=== PATIENT | male | born 1970 | race Caucasian/White ===

== ENCOUNTER 2016-07-21 17:27 | Emergency (ER) | payer MEDICAID ==
[2016-07-21 17:53] VITALS: BP 115/72
--- NOTE | 2016-07-21 18:48 | ED Physician Documentation ---
PD HPI DYSPNEA - Stated complaint Stated Complaint: ASHTMA RX - Chief complaint Chief Complaint: Resp - History obtained from History obtained from: Patient - History of Present Illness Timing - onset: How many days ago (has had increased wheezing and some nasal congestion the past few days. Out of his Albuterol inhaler. Clinic appt not until next week.) Timing - onset during: Light activity Timing - details: Gradual onset, Waxing and waning Inciting event(s): Out of meds Associated symptoms: Cough, Wheezing. No: Fever, Hemoptysis Similar symptoms before: Diagnosis (asthma) Review of Systems Constitutional: denies: Fever, Chills Nose: reports: Rhinorrhea / runny nose, Sinus pressure / pain Throat: denies: Sore throat Cardiac: denies: Chest pain / pressure Respiratory: reports: Cough, Wheezing. denies: Dyspnea PD PAST MEDICAL HISTORY - Past Medical History Cardiovascular: None Respiratory: Asthma Neuro: None Endocrine/Autoimmune: None GI: None : None HEENT: None Psych: None Musculoskeletal: None Derm: None - Past Surgical History Past Surgical History: Yes General: Splenectomy - Present Medications Home Medications: Ambulatory Orders Medication Instructions Recorded Confirmed Albuterol [Ventolin Hfa] 2 puffs INH Q4H PRN #1 inhaler 01/31/15 07/21/16 Methadone 135 mg PO DAILY 11/20/15 Albuterol Sulfate [Proair Hfa 2 puffs IH QID #1 hfa.aer.ad 07/21/16 Inhaler] predniSONE [Deltasone] 40 mg PO DAILY #10 tablet 07/21/16 - Allergies Allergies/Adverse Reactions: Allergies Allergy/AdvReac Type Severity Reaction Status Date / Time No Known Drug Allergies Allergy Verified 07/21/16 17:53 - Social History Does the pt smoke?: No Smoking Status: Former smoker Does the pt drink ETOH?: No Does the pt have substance abuse?: Yes - Immunizations Immunizations are current?: Yes - POLST Patient has POLST: No PD ED PE NORMAL - Vitals Vital signs reviewed: Yes - General General: Alert and oriented X 3, Well developed/nourished - HEENT HEENT: Ears normal, Pharynx benign - Neck Neck: Supple, no meningeal sign, No adenopathy - Cardiac Cardiac: RRR, No murmur - Respiratory Respiratory: No: Clear bilaterally (mild scattered wheezes, no coarse sounds. ) Results - Vitals Vitals: Vital Signs - 24 hr 07/21/16 17:52 Temperature 36.3 C L Heart Rate 83 Respiratory 20 Rate Blood Pressure 115/72 O2 Saturation 98 Oxygen O2 Source Room air PD MEDICAL DECISION MAKING - ED course Complexity details: considered differential (not too bad here and he mainly wants refill Rx. will do short steroid course for allergies flare up. ), d/w patient Departure - Departure Disposition: 01 Home, Self Care Clinical Impression: Dyspnea Acute asthma exacerbation Qualifiers: Asthma severity: mild intermittent Qualified Code(s): J45.21 - Mild intermittent asthma with (acute) exacerbation Condition: Stable Record reviewed to determine appropriate education?: Yes Instructions: ED Reactive Airway Disease Follow-Up: Nancy Gutierrez ARNP [Primary Care Provider] - Prescriptions: predniSONE [Deltasone] 40 mg PO DAILY #10 tablet Albuterol Sulfate [Proair Hfa Inhaler] 2 puffs IH QID #1 hfa.aer.ad Comments: Usual inhaler - Albuterol 2 puffs 4 times daily for a week then as needed. Prednisone as directed for 5 days. Recheck with PMD as planned. Discharge Date/Time: 07/21/16 18:59
[2016-07-21] MEDS ORDERED: DEXAMETHASONE 10 MG/ML VIAL PO STA (18:50)
[2016-07-21] MEDS ORDERED: DEXAMETHASONE 10 MG/ML VIAL ONE (18:56)
== END 2016-07-21 18:59 | disposition home or self-care (01) ==
LOC: ED 17:27
DX: J45.21 Mild intermittent asthma with (acute) exacerbation (principal); Z87.891 Personal history of nicotine dependence
CPT/HCPCS: 99283

== ENCOUNTER 2016-08-14 12:47 | Emergency (ER) | payer MEDICAID ==
[2016-08-14 12:51] VITALS: BP 157/69
[2016-08-14] MEDS ORDERED: DEXAMETHASONE 10 MG/ML VIAL PO STA (13:34)
[2016-08-14] MEDS ORDERED: CHERRY SYRUP 10 ML UDC PO ONE (13:35)
[2016-08-14] MEDS ORDERED: DEXAMETHASONE 10 MG/ML VIAL ONE (13:35)
--- NOTE | 2016-08-14 13:39 | ED Physician Documentation ---
PD HPI DYSPNEA - Stated complaint Stated Complaint: TROUBLE BREATHING - Chief complaint Chief Complaint: Resp - History obtained from History obtained from: Patient - History of Present Illness Timing - onset: How many days ago (2) Timing - onset during: Light activity Timing - duration: Days (2) Timing - details: Gradual onset, Still present Inciting event(s): Out of meds Improved by: Inhaler/neb Worsened by: Coughing, Allergens Associated symptoms: Cough (is improved), Wheezing. No: Fever Similar symptoms before: Diagnosis (asthma) Recently seen: Emergency Dept (Seen in the ED last month) - Additional information Additional information: 45 y/o male with a history of asthma had a recent exacerbation and he feels he improved dramatically from that. He quit smoking a month ago as well and he took the prednisone and this seemed to help. He is no longer coughing up yellow phlem and [place] and still [place] it. He usually has an exacerbation at the beginning of summer and in the fall and he has to use his inhaler as often as 3-4 times per day. On his best days he may only need this once and sometimes not for a week. Review of Systems Constitutional: reports: Fatigue. denies: Fever, Chills, Myalgias Eyes: denies: Decreased vision Ears: denies: Ear pain Nose: denies: Rhinorrhea / runny nose, Congestion Throat: denies: Sore throat Cardiac: denies: Chest pain / pressure, Palpitations Respiratory: reports: Dyspnea, Cough, Wheezing GI: denies: Abdominal Pain, Nausea, Vomiting : denies: Dysuria, Frequency PD PAST MEDICAL HISTORY - Past Medical History Past Medical History: Yes Cardiovascular: None Respiratory: Asthma, Pneumonia Neuro: None Endocrine/Autoimmune: None GI: None : None HEENT: None Psych: None Musculoskeletal: None Derm: None Other Past Medical History: staph unknown if mrsa - Past Surgical History Past Surgical History: Yes General: Splenectomy - Present Medications Home Medications: Ambulatory Orders Medication Instructions Recorded Confirmed Albuterol [Ventolin Hfa] 2 puffs INH Q4H PRN #1 inhaler 01/31/15 08/14/16 Methadone 135 mg PO DAILY 11/20/15 08/14/16 Albuterol Sulf [Ventolin Hfa 1 - 2 puffs INH Q4HR PRN #1 inhaler 08/14/16 Inhaler] - Allergies Allergies/Adverse Reactions: Allergies Allergy/AdvReac Type Severity Reaction Status Date / Time No Known Drug Allergies Allergy Verified 07/21/16 17:53 - Social History Does the pt smoke?: No Smoking Status: Former smoker Does the pt drink ETOH?: No Does the pt have substance abuse?: Yes Substance Use and Type: Marijuana - Immunizations Immunizations are current?: Yes - POLST Patient has POLST: No PD ED PE NORMAL - Vitals Vital signs reviewed: Yes (tachy and hypertensive ) - General General: Alert and oriented X 3, No acute distress, Well developed/nourished - HEENT HEENT: Atraumatic, PERRL, EOMI, Ears normal, Moist mucous membranes, Pharynx benign - Neck Neck: Supple, no meningeal sign, No bony TTP - Cardiac Cardiac: RRR, No murmur - Respiratory Respiratory: No respiratory distress, Other (scattered wheezes and rhonchi ) - Abdomen Abdomen: Soft, Non tender - Back Back: No CVA TTP, No spinal TTP - Derm Derm: Normal color, Warm and dry, No rash - Extremities Extremities: No deformity, No calf tenderness / cord - Neuro Neuro: No motor deficit, No sensory deficit - Psych Psych: Normal mood, Normal affect Results - Vitals Vitals: Vital Signs - 24 hr 08/14/16 12:50 Temperature 36.6 C Heart Rate 105 H Respiratory 20 Rate Blood Pressure 157/69 H O2 Saturation 96 Oxygen O2 Source Room air PD MEDICAL DECISION MAKING - ED course Complexity details: reviewed old records, considered differential, d/w patient ED course: 45 y/o male with asthma appears to be improved from recent exacerbation and he does not have fever or other signs of infection. He is given a script for an albuterol inhaler and he is given a single dose of decadron here in the ED. Departure - Departure Disposition: 01 Home, Self Care Clinical Impression: Asthma Instructions: ED Reactive Airway Disease Follow-Up: Nancy Gutierrez ARNP [Primary Care Provider] - Prescriptions: Albuterol Sulf [Ventolin Hfa Inhaler] 1 - 2 puffs INH Q4HR PRN #1 inhaler PRN Reason: Shortness Of Air/Wheezing
== END 2016-08-14 13:46 | disposition home or self-care (01) ==
LOC: ED 12:47
DX: J45.909 Unspecified asthma, uncomplicated (principal); Z87.891 Personal history of nicotine dependence
CPT/HCPCS: 99283; A9270

== ENCOUNTER 2016-08-30 21:47 | Emergency (ER) | payer MEDICAID ==
[2016-08-30 21:53] VITALS: BP 123/78
--- NOTE | 2016-08-30 22:07 | ED Physician Documentation ---
PD HPI DYSPNEA - Stated complaint Stated Complaint: SOA - Chief complaint Chief Complaint: Allergic Rx - History obtained from History obtained from: Patient - History of Present Illness Timing - onset: Today Timing - onset during: Light activity (ran out of his Albuterol inhaler and is having wheezing today. Does not use inhaler steroids. Has not established local PMD (has upcoming appt next month).) Timing - details: Gradual onset, Still present, Waxing and waning Inciting event(s): Out of meds. No: URI, Exposure (ie smoke) Improved by: Inhaler/neb (but has run out) Associated symptoms: Wheezing. No: Fever, Cough, Hemoptysis, Chest pain / discomfort Similar symptoms before: Diagnosis (asthma) Recently seen: No: Clinic Review of Systems Constitutional: denies: Fever, Chills Nose: denies: Rhinorrhea / runny nose, Congestion Throat: denies: Sore throat Cardiac: denies: Chest pain / pressure Respiratory: reports: Dyspnea, Wheezing. denies: Cough GI: denies: Vomiting, Diarrhea PD PAST MEDICAL HISTORY - Past Medical History Cardiovascular: None Respiratory: Asthma, Pneumonia Neuro: None Endocrine/Autoimmune: None GI: None : None HEENT: None Psych: None Musculoskeletal: None Derm: None - Past Surgical History Past Surgical History: Yes General: Splenectomy - Present Medications Home Medications: Ambulatory Orders Medication Instructions Recorded Confirmed Albuterol [Ventolin Hfa] 2 puffs INH Q4H PRN #1 inhaler 01/31/15 08/30/16 Methadone 135 mg PO DAILY 11/20/15 08/30/16 Albuterol Sulf [Ventolin Hfa 1 - 2 puffs INH Q4HR PRN #1 inhaler 08/14/16 Inhaler] Albuterol Sulfate [Proair Hfa 2 puffs IH QID #1 hfa.aer.ad 08/30/16 Inhaler] Beclomethasone 80 Mcg [Qvar 80] 1 puffs INH BID #1 inhaler 08/30/16 Dexamethasone [Decadron] 4 mg PO DAILY #5 tablet 08/30/16 - Allergies Allergies/Adverse Reactions: Allergies Allergy/AdvReac Type Severity Reaction Status Date / Time No Known Drug Allergies Allergy Verified 08/30/16 22:02 - Social History Does the pt smoke?: No Smoking Status: Former smoker Does the pt drink ETOH?: No Does the pt have substance abuse?: Yes - Immunizations Immunizations are current?: Yes - POLST Patient has POLST: No PD ED PE NORMAL - Vitals Vital signs reviewed: Yes - General General: Alert and oriented X 3, Well developed/nourished, Other (some conversational dyspnea and moderate wheezing. ) - HEENT HEENT: Pharynx benign - Neck Neck: Supple, no meningeal sign, No adenopathy - Cardiac Cardiac: RRR, No murmur - Respiratory Respiratory: No: Clear bilaterally (wheezing diffusely. ) - Derm Derm: Normal color, Warm and dry, No rash Results - Vitals Vitals: Oxygen O2 Source Room air Departure - Departure Disposition: 01 Home, Self Care Clinical Impression: Acute asthma exacerbation Qualifiers: Asthma severity: moderate persistent Qualified Code(s): J45.41 - Moderate persistent asthma with (acute) exacerbation Condition: Stable Record reviewed to determine appropriate education?: Yes Instructions: Asthma Dc Follow-Up: Nancy Gutierrez ARNP [Primary Care Provider] - Prescriptions: Dexamethasone [Decadron] 4 mg PO DAILY #5 tablet Albuterol Sulfate [Proair Hfa Inhaler] 2 puffs IH QID #1 hfa.aer.ad Beclomethasone 80 Mcg [Qvar 80] 1 puffs INH BID #1 inhaler Comments: Albuterol inhaler 2 puffs 4 times daily for a week then as needed. Decadron steroid daily for 5 more days. QVar inhaled steroid twice daily. Follow up with new PCP as planned. Discharge Date/Time: 08/30/16 22:40
[2016-08-30] MEDS ORDERED: ALBUTEROL NEB 2.5 MG/3 ML INH STA (22:11)
[2016-08-30] MEDS ORDERED: DEXAMETHASONE 10 MG/ML VIAL PO STA (22:12)
[2016-08-30] MEDS ORDERED: DEXAMETHASONE 10 MG/ML VIAL ONE (22:16)
[2016-08-30] MEDS ORDERED: ALBUTEROL NEB 2.5 MG/3 ML INH ONE (22:17)
[2016-08-30] MEDS ORDERED: ALBUTEROL 8 GM INHALER INH STA (22:31)
== END 2016-08-30 22:40 | disposition home or self-care (01) ==
LOC: ED 21:47
DX: J45.901 Unspecified asthma with (acute) exacerbation (principal); Z87.891 Personal history of nicotine dependence
CPT/HCPCS: 94640; 99283; A9270; J7613

== ENCOUNTER 2016-10-18 17:14 | Emergency (ER) | payer MEDICAID ==
[2016-10-18] MEDS ORDERED: DEXAMETHASONE 10 MG/ML VIAL PO STA (17:34)
--- NOTE | 2016-10-18 17:37 | ED Physician Documentation ---
PD HPI DYSPNEA - Stated complaint Stated Complaint: DIFF BREATHING - Chief complaint Chief Complaint: Resp - History obtained from History obtained from: Patient - History of Present Illness Timing - onset: How many days ago (2) Timing - onset during: Rest Timing - duration: Days (2) Timing - details: Gradual onset, Still present Inciting event(s): Out of meds, Exposure (ie smoke) Improved by: Inhaler/neb Worsened by: Exertion, Coughing Associated symptoms: Wheezing Similar symptoms before: Diagnosis (asthma) Recently seen: Not recently seen - Additional information Additional information: 45-year-old male with history of asthma chronic intermittent has run out of his inhaler and he continues to be dyspneic. He does not feel that he is sick now with any infection but does feel that he needs his inhaler. Review of Systems Constitutional: denies: Fever Eyes: denies: Decreased vision Ears: denies: Ear pain Nose: denies: Rhinorrhea / runny nose, Congestion Throat: denies: Sore throat Cardiac: denies: Chest pain / pressure, Palpitations Respiratory: reports: Dyspnea, Cough, Wheezing GI: denies: Abdominal Pain, Nausea, Vomiting : denies: Dysuria, Frequency Musculoskeletal: reports: Back pain PD PAST MEDICAL HISTORY - Past Medical History Cardiovascular: None Respiratory: Asthma, Pneumonia Neuro: None Endocrine/Autoimmune: None GI: None : None HEENT: None Psych: None Musculoskeletal: None Derm: None - Past Surgical History Past Surgical History: Yes General: Splenectomy - Present Medications Home Medications: Ambulatory Orders Medication Instructions Recorded Confirmed Albuterol [Ventolin Hfa] 2 puffs INH Q4H PRN #1 inhaler 01/31/15 08/30/16 Methadone 135 mg PO DAILY 11/20/15 08/30/16 Albuterol Sulf [Ventolin Hfa 1 - 2 puffs INH Q4HR PRN #1 inhaler 08/14/16 Inhaler] Albuterol Sulfate [Proair Hfa 2 puffs IH QID #1 hfa.aer.ad 08/30/16 Inhaler] Beclomethasone 80 Mcg [Qvar 80] 1 puffs INH BID #1 inhaler 08/30/16 Dexamethasone [Decadron] 4 mg PO DAILY #5 tablet 08/30/16 Albuterol Sulf [Ventolin Hfa 1 - 2 puffs INH Q4HR PRN #1 inhaler 10/18/16 Inhaler] - Allergies Allergies/Adverse Reactions: Allergies Allergy/AdvReac Type Severity Reaction Status Date / Time No Known Drug Allergies Allergy Verified 10/18/16 17:19 - Social History Does the pt smoke?: No Smoking Status: Former smoker Does the pt drink ETOH?: No Does the pt have substance abuse?: Yes - Immunizations Immunizations are current?: Yes - POLST Patient has POLST: No PD ED PE NORMAL - Vitals Vital signs reviewed: Yes (Hypertensive) - General General: No acute distress, Well developed/nourished - HEENT HEENT: Atraumatic, PERRL, EOMI, Ears normal, Other - Neck Neck: Supple, no meningeal sign (Dry mucous membranes poor dentition.), No bony TTP - Cardiac Cardiac: RRR, No murmur - Respiratory Respiratory: No respiratory distress, Other (Scattered rhonchi and wheezes bilaterally) - Abdomen Abdomen: Soft, Non tender - Back Back: No CVA TTP, No spinal TTP - Derm Derm: Normal color, Warm and dry, No rash - Extremities Extremities: No deformity, No edema - Neuro Neuro: No motor deficit, No sensory deficit - Psych Psych: Normal mood, Normal affect Results - Vitals Vitals: Vital Signs - 24 hr 10/18/16 17:16 Temperature 36.7 C Heart Rate 93 Respiratory 20 Rate Blood Pressure 138/80 H O2 Saturation 95 Oxygen O2 Source Room air PD MEDICAL DECISION MAKING - ED course Complexity details: reviewed old records, reviewed results, re-evaluated patient , considered differential, d/w patient ED course: 45-year-old male with history of asthma has run out of his inhaler and does not have current evidence of infection. He does have some chronic back pain that he believes may be related to sleeping more than usual after starting a methadone program. Here in the emergency department he is administered dexamethasone 10 mg orally. He has had prior prescriptions for prednisone and he does not fill these. We will provide him with a prescription for an inhaler. Departure - Departure Disposition: 01 Home, Self Care Clinical Impression: Asthma Condition: Stable Instructions: ED Reactive Airway Disease Follow-Up: Nancy Gutierrez ARNP [Primary Care Provider] - Prescriptions: Albuterol Sulf [Ventolin Hfa Inhaler] 1 - 2 puffs INH Q4HR PRN #1 inhaler PRN Reason: Shortness Of Air/Wheezing
[2016-10-18] MEDS ORDERED: DEXAMETHASONE 10 MG/ML VIAL ONE (17:41)
[2016-10-18 17:47] VITALS: BP 132/78
== END 2016-10-18 17:46 | disposition home or self-care (01) ==
LOC: ED 17:14
DX: J45.909 Unspecified asthma, uncomplicated (principal); Z87.891 Personal history of nicotine dependence
CPT/HCPCS: 99283

== ENCOUNTER 2016-11-02 04:35 | Emergency (ER) | payer MEDICAID ==
[2016-11-02] MEDS ORDERED: IPRATROPIUM/ALBUTEROL 3 ML NEB INH STA (04:36)
--- NOTE | 2016-11-02 04:36 | ED Physician Documentation ---
PD HPI DYSPNEA - Stated complaint Stated Complaint: SHORTNESS OF BREATH - History obtained from History obtained from: Patient - History of Present Illness Timing - onset: How many hours ago (1-2 hours [employer]), Today Timing - onset during: Rest Timing - duration: Hours Timing - details: Gradual onset, Constant Pain level max: 0 Pain level now: 0 Inciting event(s): Out of meds (out of albuterol inhaler) Improved by: Rest Worsened by: Exertion Associated symptoms: Wheezing. No: Fever, Cough Similar symptoms before: Diagnosis (asthma) Review of Systems Constitutional: denies: Fever Cardiac: denies: Chest pain / pressure Respiratory: reports: Dyspnea, Wheezing. denies: Cough GI: reports: Reviewed and negative PD PAST MEDICAL HISTORY - Past Medical History Cardiovascular: None Respiratory: Asthma, Pneumonia Neuro: None Endocrine/Autoimmune: None GI: None : None HEENT: None Psych: None Musculoskeletal: None Derm: None - Past Surgical History Past Surgical History: Yes General: Splenectomy - Present Medications Home Medications: Ambulatory Orders Medication Instructions Recorded Confirmed Albuterol [Ventolin Hfa] 2 puffs INH Q4H PRN #1 inhaler 01/31/15 08/30/16 Methadone 135 mg PO DAILY 11/20/15 08/30/16 Albuterol Sulf [Ventolin Hfa 1 - 2 puffs INH Q4HR PRN #1 inhaler 08/14/16 Inhaler] Albuterol Sulfate [Proair Hfa 2 puffs IH QID #1 hfa.aer.ad 08/30/16 Inhaler] Beclomethasone 80 Mcg [Qvar 80] 1 puffs INH BID #1 inhaler 08/30/16 Dexamethasone [Decadron] 4 mg PO DAILY #5 tablet 08/30/16 Albuterol Sulf [Ventolin Hfa 1 - 2 puffs INH Q4HR PRN #1 inhaler 10/18/16 Inhaler] Albuterol Sulf [Ventolin Hfa 1 - 2 puffs INH Q4HR PRN #1 inhaler 11/02/16 Inhaler] predniSONE [Deltasone] 40 mg PO DAILY 4 Days 11/02/16 - Allergies Allergies/Adverse Reactions: Allergies Allergy/AdvReac Type Severity Reaction Status Date / Time No Known Drug Allergies Allergy Verified 10/18/16 17:19 - Social History Does the pt smoke?: No Smoking Status: Former smoker Does the pt drink ETOH?: No Does the pt have substance abuse?: Yes - Immunizations Immunizations are current?: Yes - POLST Patient has POLST: No PD ED PE NORMAL - Vitals Vital signs reviewed: Yes - General General: Alert and oriented X 3, Well developed/nourished, Other (moderate- severe respiratory distress) - Neck Neck: Supple, no meningeal sign PD ED PE EXPANDED - Cardiac Cardiac: Tachy, Regular Rhythm - Respiratory Respiratory: Distress, Labored, Wheezing, Decreased breath sounds Results - Vitals Vitals: Vital Signs - 24 hr 11/02/16 11/02/16 11/02/16 04:37 04:40 06:12 Temperature 36.4 C L Heart Rate 109 H 86 93 Respiratory 16 14 16 Rate Blood Pressure 152/51 H 102/51 L O2 Saturation 96 94 11/02/16 06:50 Temperature Heart Rate 87 Respiratory 16 Rate Blood Pressure O2 Saturation Oxygen O2 Source Room air Oxygen Flow Rate 6 PD MEDICAL DECISION MAKING - ED course Complexity details: reviewed old records, re-evaluated patient, considered differential, d/w patient ED course: Duoneb followed by 3 albuterol nebs with resolution of signs and symptoms: on reevaluation after these treatments, his respirations are CTA bilaterally, regular and easy, speaking in full sentences and reporting resolution of his symptoms. Departure - Departure Disposition: 01 Home, Self Care Clinical Impression: Asthma Condition: Good Instructions: ED Reactive Airway Disease Follow-Up: Nancy Gutierrez ARNP [Primary Care Provider] - Prescriptions: Albuterol Sulf [Ventolin Hfa Inhaler] 1 - 2 puffs INH Q4HR PRN #1 inhaler PRN Reason: Shortness Of Air/Wheezing predniSONE [Deltasone] 40 mg PO DAILY 4 Days Discharge Date/Time: 11/02/16 07:09
[2016-11-02] MEDS ORDERED: ALBUTEROL NEB 2.5 MG/3 ML INH STA ×3 (04:40→06:14)
[2016-11-02] MEDS ORDERED: ALBUTEROL NEB 2.5 MG/3 ML INH ONE ×2 (04:45→06:56)
[2016-11-02] MEDS ORDERED: predniSONE 20 MG TABLET PO STA (04:54)
[2016-11-02] MEDS ORDERED: predniSONE 20 MG TABLET ONE (05:46)
[2016-11-02 06:13] VITALS: BP 102/51
== END 2016-11-02 07:09 | disposition home or self-care (01) ==
LOC: ED 04:35
DX: J45.909 Unspecified asthma, uncomplicated (principal); Z87.891 Personal history of nicotine dependence
CPT/HCPCS: 94640; 99283; 99284; J7512; J7613

== ENCOUNTER 2016-11-18 06:31 | Emergency (ER) | payer MEDICAID ==
[2016-11-18 06:37] VITALS: BP 133/100
[2016-11-18] MEDS ORDERED: IPRATROPIUM/ALBUTEROL 3 ML NEB INH STA (06:40)
[2016-11-18] MEDS ORDERED: IPRATROPIUM/ALBUTEROL 3 ML NEB INH ONE ×3 (06:46→06:56)
--- NOTE | 2016-11-18 07:29 | ED Physician Documentation ---
PD HPI DYSPNEA - Stated complaint Stated Complaint: SOA - Chief complaint Chief Complaint: Resp - History obtained from History obtained from: Patient - History of Present Illness Timing - onset: Yesterday Timing - onset during: Rest Timing - duration: Days (1) Timing - details: Gradual onset, Still present Inciting event(s): Out of meds Improved by: Inhaler/neb Worsened by: Exertion, Laying flat, Coughing, Allergens Associated symptoms: Cough, Wheezing. No: Fever, Hemoptysis Similar symptoms before: Diagnosis (asthma) Recently seen: Emergency Dept (3rd visit in 30 days) - Additional information Additional information: 45-year-old male with chronic persistent asthma has run out of his inhaler last night and is having respiratory distress this morning. He states that he has previously had control of his asthma with use of Advair and he has not been able to get in to see his regular doctor for the past 2 months. He does have an appointment to see a new doctor at the [facility] clinic next week.He does not feel that he is sick in any way but needs his inhaler. Review of Systems Constitutional: denies: Fever Eyes: denies: Decreased vision Ears: denies: Ear pain Nose: denies: Congestion Throat: denies: Sore throat Cardiac: denies: Chest pain / pressure, Palpitations Respiratory: reports: Dyspnea, Cough, Wheezing GI: denies: Abdominal Pain, Nausea, Vomiting : denies: Dysuria, Frequency PD PAST MEDICAL HISTORY - Past Medical History Cardiovascular: None Respiratory: Asthma, Pneumonia Neuro: None Endocrine/Autoimmune: None GI: None : None HEENT: None Psych: None Musculoskeletal: None Derm: None - Past Surgical History Past Surgical History: Yes General: Splenectomy - Present Medications Home Medications: Ambulatory Orders Medication Instructions Recorded Confirmed Albuterol [Ventolin Hfa] 2 puffs INH Q4H PRN #1 inhaler 01/31/15 11/18/16 Albuterol Sulf [Ventolin Hfa 1 - 2 puffs INH Q4HR PRN #1 inhaler 11/18/16 Inhaler] Fluticasone/Salmeterol [Advair 1 each IH 1-2XD #30 blst.w.dev 11/18/16 250-50 Diskus] - Allergies Allergies/Adverse Reactions: Allergies Allergy/AdvReac Type Severity Reaction Status Date / Time No Known Drug Allergies Allergy Verified 11/18/16 06:37 - Social History Does the pt smoke?: No Smoking Status: Never smoker Does the pt drink ETOH?: No Does the pt have substance abuse?: Yes - Immunizations Immunizations are current?: Yes - POLST Patient has POLST: No PD ED PE NORMAL - Vitals Vital signs reviewed: Yes (Hypertensive) - General General: No acute distress, Well developed/nourished - HEENT HEENT: Atraumatic, PERRL, EOMI, Ears normal, Moist mucous membranes, Pharynx benign - Neck Neck: Supple, no meningeal sign - Cardiac Cardiac: RRR, No murmur - Respiratory Respiratory: No respiratory distress, Other (Light wheezes bilaterally after treatment.) - Abdomen Abdomen: Soft, Non tender - Back Back: No CVA TTP, No spinal TTP - Derm Derm: Normal color, Warm and dry, No rash - Extremities Extremities: No deformity, No edema - Neuro Neuro: No motor deficit, No sensory deficit - Psych Psych: Normal mood, Normal affect Results - Vitals Vitals: Vital Signs - 24 hr 11/18/16 11/18/16 11/18/16 06:34 06:49 07:00 Temperature 36.8 C Heart Rate 71 63 78 Respiratory 20 20 18 Rate Blood Pressure 133/100 H O2 Saturation 97 Oxygen O2 Source T-piece PD MEDICAL DECISION MAKING - ED course Complexity details: reviewed old records, re-evaluated patient, considered differential, d/w patient ED course: 45-year-old male with chronic persistent asthma has run out of his inhaler and he needs this. He has not been able to get into his primary care doctor And has not had adequate management of his asthma. He has had prior management of his asthma with Advair and we will prescribe this today as well as an albuterol inhaler. Departure - Departure Disposition: 01 Home, Self Care Clinical Impression: Asthma Condition: Stable Instructions: ED Reactive Airway Disease Follow-Up: Nancy Gutierrez ARNP [Primary Care Provider] - Prescriptions: Albuterol Sulf [Ventolin Hfa Inhaler] 1 - 2 puffs INH Q4HR PRN #1 inhaler PRN Reason: Shortness Of Air/Wheezing Fluticasone/Salmeterol [Advair 250-50 Diskus] 1 each IH 1-2XD #30 blst.w.dev
== END 2016-11-18 07:40 | disposition home or self-care (01) ==
LOC: ED 06:31
DX: J45.909 Unspecified asthma, uncomplicated (principal)
CPT/HCPCS: 94640; 99283; J7620

== ENCOUNTER 2017-01-10 16:33 | Emergency (ER) | payer MEDICAID ==
--- NOTE | 2017-01-10 17:47 | ED Physician Documentation ---
PD HPI DYSPNEA - Stated complaint Stated Complaint: DIFF BREATHING - Chief complaint Chief Complaint: Resp - History obtained from History obtained from: Patient - History of Present Illness Timing - onset: Last night Timing - onset during: Light activity Timing - details: Gradual onset, Still present, Waxing and waning Inciting event(s): Out of meds (albuterol) Worsened by: Exertion, Coughing Associated symptoms: Cough, Wheezing. No: Fever, Hemoptysis, Chest pain / discomfort, Palpitations Similar symptoms before: Diagnosis (asthma) Review of Systems Constitutional: denies: Fever, Chills Nose: denies: Rhinorrhea / runny nose, Congestion Throat: denies: Sore throat Cardiac: denies: Chest pain / pressure Respiratory: reports: Dyspnea, Cough, Wheezing GI: denies: Nausea, Vomiting, Diarrhea Skin: denies: Rash, Lesions Musculoskeletal: denies: Extremity swelling PD PAST MEDICAL HISTORY - Past Medical History Cardiovascular: None Respiratory: Asthma, Pneumonia Neuro: None Endocrine/Autoimmune: None GI: None : None HEENT: None Psych: None Musculoskeletal: None Derm: None - Past Surgical History Past Surgical History: Yes General: Splenectomy - Present Medications Home Medications: Ambulatory Orders Medication Instructions Recorded Confirmed Albuterol [Ventolin Hfa] 2 puffs INH Q4H PRN #1 inhaler 01/31/15 01/10/17 Albuterol Sulf [Ventolin Hfa 1 - 2 puffs INH Q4HR PRN #1 inhaler 11/18/16 Inhaler] Fluticasone/Salmeterol [Advair 1 each IH 1-2XD #30 blst.w.dev 11/18/16 01/10/17 250-50 Diskus] Albuterol Sulf [Ventolin Hfa 1 - 2 puffs INH Q4HR PRN #1 inhaler 01/10/17 Inhaler] Dexamethasone [Decadron] 4 mg PO DAILY #5 tablet 01/10/17 Methocarbamol [Robaxin] 500 mg PO Q6H PRN #25 tablet 01/10/17 Naproxen 375 mg PO BID #20 tablet 01/10/17 - Allergies Allergies/Adverse Reactions: Allergies Allergy/AdvReac Type Severity Reaction Status Date / Time No Known Drug Allergies Allergy Verified 11/18/16 06:37 - Social History Does the pt smoke?: No Smoking Status: Never smoker Does the pt drink ETOH?: No Does the pt have substance abuse?: Yes - Immunizations Immunizations are current?: Yes - POLST Patient has POLST: No PD ED PE NORMAL - Vitals Vital signs reviewed: Yes - General General: Alert and oriented X 3, No acute distress, Well developed/nourished - HEENT HEENT: Ears normal, Pharynx benign - Neck Neck: Supple, no meningeal sign, No adenopathy - Cardiac Cardiac: RRR, No murmur - Respiratory Respiratory: No: Clear bilaterally (no coarse sounds. Diffuse wheezing bilaterally) - Abdomen Abdomen: Soft, Non tender - Derm Derm: Normal color, Warm and dry - Extremities Extremities: No edema, No calf tenderness / cord - Neuro Neuro: Alert and oriented X 3, No motor deficit, Normal speech Results - Vitals Vitals: Oxygen O2 Source Room air PD MEDICAL DECISION MAKING - ED course Complexity details: re-evaluated patient, considered differential, d/w patient Departure - Departure Disposition: 01 Home, Self Care Clinical Impression: Low back pain Qualifiers: Chronicity: acute Back pain laterality: bilateral Sciatica presence: without sciatica Qualified Code(s): M54.5 - Low back pain Condition: Stable Record reviewed to determine appropriate education?: Yes Instructions: ED Bronchitis Asthmatic Prescriptions: Albuterol Sulf [Ventolin Hfa Inhaler] 1 - 2 puffs INH Q4HR PRN #1 inhaler PRN Reason: Shortness Of Air/Wheezing Dexamethasone [Decadron] 4 mg PO DAILY #5 tablet Methocarbamol [Robaxin] 500 mg PO Q6H PRN #25 tablet PRN Reason: Spasms Naproxen 375 mg PO BID #20 tablet Comments: For the back, gentle range of motion and heat for it periodically help improve range of motion. Use naproxen twice daily for the next 10 days. Add Robaxin if needed for spasms and stiffness. For the breathing, using albuterol inhaler 2 puffs 4 times a day as needed. Decadron daily for 5 more days. This may help her low back as well. Add Tylenol if needed for pains. Follow-up with your primary care if not improved over the next few days. Discharge Date/Time: 01/10/17 19:10
[2017-01-10] MEDS ORDERED: METHOCARBAMOL 500 MG TABLET PO STA (17:55)
[2017-01-10] MEDS ORDERED: DEXAMETHASONE 10 MG/ML VIAL PO STA (17:55)
[2017-01-10] MEDS ORDERED: NAPROXEN 250 MG TABLET PO STA (17:55)
[2017-01-10] MEDS ORDERED: ALBUTEROL NEB 2.5 MG/3 ML INH STA (17:55)
[2017-01-10] MEDS ORDERED: NAPROXEN 250 MG TABLET PO ONE (18:07)
[2017-01-10] MEDS ORDERED: METHOCARBAMOL 500 MG TABLET PO ONE (18:07)
[2017-01-10] MEDS ORDERED: DEXAMETHASONE 10 MG/ML VIAL ONE (18:07)
[2017-01-10 18:10] VITALS: BP 104/79
[2017-01-10] MEDS ORDERED: ALBUTEROL NEB 2.5 MG/3 ML INH ONE (18:31)
== END 2017-01-10 19:10 | disposition home or self-care (01) ==
LOC: ED 16:33
DX: M54.5 Low back pain (principal); J45.909 Unspecified asthma, uncomplicated
CPT/HCPCS: 94640; 99283; A9270; J7613; 96372

== ENCOUNTER 2017-06-15 06:33 | Emergency (ER) | payer MEDICAID ==
[2017-06-15 06:41] VITALS: BP 111/75
--- NOTE | 2017-06-15 07:15 | ED Physician Documentation ---
PD HPI DYSPNEA - Stated complaint Stated Complaint: DIFFICUTLY BREATHING - Chief complaint Chief Complaint: Resp - History obtained from History obtained from: Patient - History of Present Illness Timing - onset: Last night Timing - onset during: Rest Timing - duration: Days (1) Timing - details: Abrupt onset, Still present Inciting event(s): Out of meds Improved by: Inhaler/neb Worsened by: Coughing Associated symptoms: Cough, Wheezing Similar symptoms before: Diagnosis (chronic persistent asthma) Recently seen: Not recently seen - Additional information Additional information: 46-year-old male with chronic persistent asthma has run out of his albuterol inhaler and is in here this morning with increased shortness of breath. He states he does not feel sick in any way he has not been using his inhaler more than usual he states that he is recently got an Advair inhaler again and he has been using this he did use it this morning feels that it might of helped a bit. Review of Systems Constitutional: denies: Fever Eyes: denies: Decreased vision Ears: denies: Ear pain Nose: reports: Congestion. denies: Rhinorrhea / runny nose Throat: denies: Sore throat Cardiac: denies: Chest pain / pressure, Palpitations Respiratory: reports: Dyspnea, Cough, Wheezing GI: denies: Abdominal Pain, Nausea, Vomiting : denies: Dysuria, Frequency PD PAST MEDICAL HISTORY - Past Medical History Past Medical History: Yes Cardiovascular: None Respiratory: Asthma, Pneumonia Neuro: None Endocrine/Autoimmune: None GI: None : None HEENT: None Psych: None Musculoskeletal: None Derm: None - Past Surgical History Past Surgical History: Yes General: Splenectomy - Present Medications Home Medications: Ambulatory Orders Medication Instructions Recorded Confirmed Albuterol Sulf [Ventolin Hfa 1 - 2 puffs INH Q4HR PRN #1 inhaler 11/18/16 Inhaler] Fluticasone/Salmeterol [Advair 1 each IH 1-2XD #30 blst.w.dev 11/18/16 01/10/17 250-50 Diskus] Albuterol Sulf [Ventolin Hfa 1 - 2 puffs INH Q4HR PRN #1 inhaler 06/15/17 Inhaler] Azithromycin [Zithromax] 250 mg PO DAILY #6 tablet 06/15/17 - Allergies Allergies/Adverse Reactions: Allergies Allergy/AdvReac Type Severity Reaction Status Date / Time No Known Drug Allergies Allergy Verified 06/15/17 06:41 - Social History Does the pt smoke?: Yes Smoking Status: Current every day smoker Does the pt drink ETOH?: No Does the pt have substance abuse?: Yes Substance Use and Type: Marijuana, Meth, Heroin - Immunizations Immunizations are current?: Yes - POLST Patient has POLST: No PD ED PE NORMAL - Vitals Vital signs reviewed: Yes (normal ) - General General: Alert and oriented X 3, No acute distress, Well developed/nourished - HEENT HEENT: Atraumatic, PERRL, EOMI, Other (There is erythema and distortion of landmarks on the left and the right is less involved. ) - Neck Neck: Supple, no meningeal sign, No bony TTP - Cardiac Cardiac: RRR, No murmur - Respiratory Respiratory: No respiratory distress, Other (diminished breath sounds with tight wheezes) - Abdomen Abdomen: Soft, Non tender - Back Back: No CVA TTP, No spinal TTP - Derm Derm: Normal color, Warm and dry, No rash - Extremities Extremities: No deformity, No edema - Neuro Neuro: No motor deficit, No sensory deficit Eye Opening: Spontaneous Motor: Obeys Commands Verbal: Oriented GCS Score: 15 - Psych Psych: Normal mood, Normal affect Results - Vitals Vitals: Vital Signs - 24 hr 06/15/17 06:35 Temperature 36.9 C Heart Rate 73 Respiratory 18 Rate Blood Pressure 111/75 O2 Saturation 99 Oxygen O2 Source Room air PD MEDICAL DECISION MAKING - ED course Complexity details: reviewed results, re-evaluated patient, considered differential, d/w patient ED course: asthma out of meds. Has OM on exam and does not feel like he is sick or worse than usual. Departure - Departure Disposition: 01 Home, Self Care Clinical Impression: Acute asthma exacerbation Qualifiers: Asthma severity: moderate Asthma persistence: persistent Qualified Code(s): J45.41 - Moderate persistent asthma with (acute) exacerbation Otitis media Qualifiers: Otitis media type: suppurative Chronicity: acute Laterality: bilateral Recurrence: not specified as recurrent Spontaneous tympanic membrane rupture: without spontaneous rupture Qualified Code(s): H66.003 - Acute suppurative otitis media without spontaneous rupture of ear drum, bilateral Instructions: ED Bronchitis Asthmatic, ED Ear Infec Wait See Abx Tx Ch Follow-Up: Your, doctor [Other] Prescriptions: Albuterol Sulf [Ventolin Hfa Inhaler] 1 - 2 puffs INH Q4HR PRN #1 inhaler PRN Reason: Shortness Of Air/Wheezing Azithromycin [Zithromax] 250 mg PO DAILY #6 tablet
[2017-06-15] MEDS: IPRATROPIUM/ALBUTEROL 3 ML NEB INH STA (07:23)
[2017-06-15] MEDS: DEXAMETHASONE 10 MG/ML VIAL PO STA (07:46)
== END 2017-06-15 07:46 | disposition home or self-care (01) ==
LOC: ED 06:33
DX: J45.41 Moderate persistent asthma with (acute) exacerbation (principal); H66.003 Acute suppurative otitis media without spontaneous rupture of ear drum, bilateral; F17.200 Nicotine dependence, unspecified, uncomplicated
CPT/HCPCS: 99283

== ENCOUNTER 2017-10-30 07:10 | Emergency (ER) | payer MEDICAID ==
[2017-10-30] MEDS ORDERED: DEXAMETHASONE 10 MG/ML VIAL PO STA (07:18)
[2017-10-30] MEDS ORDERED: IPRATROPIUM/ALBUTEROL 3 ML NEB INH STA (07:18)
--- NOTE | 2017-10-30 07:21 | ED Physician Documentation ---
PD HPI DYSPNEA - Stated complaint Stated Complaint: TROUBLE BREATHING - Chief complaint Chief Complaint: Resp - History obtained from History obtained from: Patient - History of Present Illness Timing - onset: Yesterday Timing - onset during: Rest Timing - duration: Days (1) Timing - details: Gradual onset, Still present Inciting event(s): Out of meds Improved by: Inhaler/neb, Steroids Worsened by: Coughing Associated symptoms: Cough, Wheezing, Other (abcessed tooth on right upper) Similar symptoms before: Diagnosis (chronic persistent asthma) Recently seen: Clinic (attends methadone clinic.) - Additional information Additional information: 46-year-old male with a history of chronic persistent asthma who usually is maintained on albuterol and Advair has run out of his inhalers. He is currently attending a methadone clinic and he is unable to get into see the doctors there to refill his inhalers. He complains that he is having some issue with an abscessed tooth on the right upper and he is preparing to have his teeth worked on next week. The patient states that he does not otherwise feel ill he has his usual cough but he has not been having fever. Review of Systems Constitutional: denies: Fever, Chills, Myalgias Eyes: denies: Decreased vision Ears: denies: Ear pain Nose: denies: Rhinorrhea / runny nose, Congestion Throat: reports: Dental pain / toothache. denies: Sore throat Cardiac: denies: Chest pain / pressure, Palpitations Respiratory: reports: Dyspnea, Cough, Wheezing GI: denies: Abdominal Pain, Nausea, Vomiting : denies: Dysuria, Frequency PD PAST MEDICAL HISTORY - Past Medical History Cardiovascular: None Respiratory: Asthma, Pneumonia Endocrine/Autoimmune: None GI: None : None HEENT: None Psych: None Musculoskeletal: None Derm: None - Past Surgical History Past Surgical History: Yes General: Splenectomy - Present Medications Home Medications: Ambulatory Orders Medication Instructions Recorded Confirmed Albuterol Sulf [Ventolin Hfa 1 - 2 puffs INH Q4HR PRN #1 inhaler 11/18/16 Inhaler] Fluticasone/Salmeterol [Advair 1 each IH 1-2XD #30 blst.w.dev 11/18/16 10/30/17 250-50 Diskus] Albuterol Sulf [Ventolin Hfa 1 - 2 puffs INH Q4HR PRN #1 inhaler 06/15/17 Inhaler] Albuterol Sulf [Ventolin Hfa 1 - 2 puffs INH Q4HR PRN #1 inhaler 10/30/17 Inhaler] Amoxicillin 875 mg PO BID #14 tablet 10/30/17 Fluticasone/Salmeterol [Advair 1 each IH BID #30 blst.w.dev 10/30/17 250-50 Diskus] Methadone 105 mg PO DAILY 10/30/17 10/30/17 - Allergies Allergies/Adverse Reactions: Allergies Allergy/AdvReac Type Severity Reaction Status Date / Time No Known Drug Allergies Allergy Verified 06/15/17 06:41 - Social History Does the pt smoke?: Yes Smoking Status: Current every day smoker Does the pt drink ETOH?: No Does the pt have substance abuse?: Yes - Immunizations Immunizations are current?: Yes - POLST Patient has POLST: No PD ED PE NORMAL - Vitals Vital signs reviewed: Yes (normal ) - General General: Alert and oriented X 3, No acute distress, Well developed/nourished - HEENT HEENT: Atraumatic, PERRL, EOMI, Ears normal, Moist mucous membranes, Pharynx benign, Other (There is wide spread dental decay and multiple missing teeth. #6 is tender without fluctuance to the gingival/buccal fold. ) - Neck Neck: Supple, no meningeal sign, No bony TTP - Cardiac Cardiac: RRR, No murmur - Respiratory Respiratory: No respiratory distress, Other (inspritory and expritory wheezes scattered throughout ) - Abdomen Abdomen: Soft, Non tender - Back Back: No CVA TTP, No spinal TTP - Derm Derm: Normal color, Warm and dry, No rash - Extremities Extremities: No deformity, No edema - Neuro Neuro: Alert and oriented X 3, consulting sme 2-12 intact, No motor deficit, No sensory deficit, Normal speech Eye Opening: Spontaneous Motor: Obeys Commands Verbal: Oriented GCS Score: 15 - Psych Psych: Normal mood, Normal affect PD ED PE EXPANDED - HEENT HEENT Visual: 1 - abscess, tenderness Results - Vitals Vitals: Vital Signs - 24 hr 10/30/17 07:12 Temperature 36.5 C Heart Rate 80 Respiratory 18 Rate Blood Pressure 126/73 O2 Saturation 97 Oxygen O2 Source Room air PD MEDICAL DECISION MAKING - ED course Complexity details: reviewed old records, considered differential, d/w patient ED course: 46-year-old male with a history of chronic persistent asthma has tight wheezes bilaterally and is out of his inhalers. He is administered dexamethasone 10 mg orally a DuoNeb treatment and we will refill his Advair and albuterol. In addition he does have abscess to a right upper tooth and we will place him on some amoxicillin as well. - Sepsis Event Vital Signs: Vital Signs - 24 hr 10/30/17 07:12 Temperature 36.5 C Heart Rate 80 Respiratory 18 Rate Blood Pressure 126/73 O2 Saturation 97 Oxygen O2 Source Room air Departure - Departure Disposition: 01 Home, Self Care Clinical Impression: Asthma, Dental infection Condition: Stable Instructions: ED Bronchitis Asthmatic, ED Abscess Tooth Follow-Up: Your, doctor [Other] Prescriptions: Albuterol Sulf [Ventolin Hfa Inhaler] 1 - 2 puffs INH Q4HR PRN #1 inhaler PRN Reason: Shortness Of Air/Wheezing Amoxicillin 875 mg PO BID #14 tablet Fluticasone/Salmeterol [Advair 250-50 Diskus] 1 each IH BID #30 blst.w.dev
[2017-10-30] MEDS ORDERED: CHERRY SYRUP 10 ML UDC PO ONE (07:27)
[2017-10-30 07:51] VITALS: BP 117/71
== END 2017-10-30 07:51 | disposition home or self-care (01) ==
LOC: ED 07:10
DX: J45.909 Unspecified asthma, uncomplicated (principal); K04.7 Periapical abscess without sinus; F17.200 Nicotine dependence, unspecified, uncomplicated; Z91.128 Patient's intentional underdosing of medication regimen for other reason; T48.6X6A Underdosing of antiasthmatics, initial encounter
CPT/HCPCS: 94640; 99283; A9270

== ENCOUNTER 2017-11-10 18:01 | Outpatient (CLI) | payer OTHER, MEDICAID | END 2017-11-10 18:02 | disposition home or self-care (01) | LOC: LAB 18:01 | PROVIDERS: ATTEND Pathology Blood Banking & Transfusion Medicine | DX: Z01.89 Encounter for other specified special examinations (principal) | CPT/HCPCS: 36415 ==

== ENCOUNTER 2017-12-06 13:20 | Emergency (ER) | payer MEDICAID ==
[2017-12-06 13:24] VITALS: BP 114/68
--- NOTE | 2017-12-06 13:51 | ED Physician Documentation ---
History of Present Illness - Stated complaint Stated Complaint: MED REFILL - Chief complaint Chief Complaint: General - Additonal information Additional information: hx from pt 47 male hx asthma needs new MDI now PMD yet (but working on it) no acute resp issues at this time Review of Systems Constitutional: denies: Fever Cardiac: denies: Chest pain / pressure Respiratory: denies: Dyspnea, Cough Musculoskeletal: denies: Extremity swelling PD PAST MEDICAL HISTORY - Past Medical History Cardiovascular: None Respiratory: Asthma, Pneumonia Endocrine/Autoimmune: None GI: None : None HEENT: None Psych: None Musculoskeletal: None Derm: None - Past Surgical History Past Surgical History: Yes General: Splenectomy - Present Medications Home Medications: Ambulatory Orders Medication Instructions Recorded Confirmed Albuterol Sulf [Ventolin Hfa 1 - 2 puffs INH Q4HR PRN #1 inhaler 11/18/16 10/30/17 Inhaler] Fluticasone/Salmeterol [Advair 1 each IH 1-2XD #30 blst.w.dev 11/18/16 10/30/17 250-50 Diskus] Albuterol Sulf [Ventolin Hfa 1 - 2 puffs INH Q4HR PRN #1 inhaler 06/15/17 10/30/17 Inhaler] Albuterol Sulf [Ventolin Hfa 1 - 2 puffs INH Q4HR PRN #1 inhaler 10/30/17 Inhaler] Amoxicillin 875 mg PO BID #14 tablet 10/30/17 Fluticasone/Salmeterol [Advair 1 each IH BID #30 blst.w.dev 10/30/17 250-50 Diskus] Methadone 105 mg PO DAILY 10/30/17 10/30/17 Albuterol Sulfate [Proair Hfa 2 puffs INH Q4H PRN #1 inhaler 12/06/17 Inhaler] - Allergies Allergies/Adverse Reactions: Allergies Allergy/AdvReac Type Severity Reaction Status Date / Time No Known Drug Allergies Allergy Verified 06/15/17 06:41 - Social History Does the pt smoke?: Yes Smoking Status: Current every day smoker Does the pt drink ETOH?: No Does the pt have substance abuse?: Yes - Immunizations Immunizations are current?: Yes - POLST Patient has POLST: No PD ED PE NORMAL - Vitals Vital signs reviewed: Yes - Cardiac Cardiac: RRR - Respiratory Respiratory: Other (mild exp wheezing, good air movement) - Abdomen Abdomen: Soft, Non tender - Neuro Neuro: Alert and oriented X 3 Results - Vitals Vitals: Vital Signs - 24 hr 12/06/17 13:23 Temperature 36.8 C Heart Rate 74 Respiratory 16 Rate Blood Pressure 114/68 O2 Saturation 96 Oxygen O2 Source Room air PD MEDICAL DECISION MAKING - ED course ED course: offered but pt declined neb in ED just wants a new MDI has resources to establish with a PMD using ED for med refill not really appropriate but not a controlled substance and a fairly vital medication Departure - Departure Disposition: Home, Self Care Clinical Impression: Medication refill Condition: Good Prescriptions: Albuterol Sulfate [Proair Hfa Inhaler] 2 puffs INH Q4H PRN #1 inhaler PRN Reason: Shortness Of Air/Wheezing Discharge Date/Time: 12/06/17 13:58
== END 2017-12-06 13:58 | disposition home or self-care (01) ==
LOC: ED 13:20
DX: J45.909 Unspecified asthma, uncomplicated (principal); Z76.0 Encounter for issue of repeat prescription; F17.200 Nicotine dependence, unspecified, uncomplicated
CPT/HCPCS: 99281; 99283

== ENCOUNTER 2019-02-12 10:44 | Emergency (ER) | payer MEDICAID ==
[2019-02-12 10:51] VITALS: BP 113/69
--- NOTE | 2019-02-12 12:15 | ED Physician Documentation ---
History of Present Illness - Stated complaint Stated Complaint: Med Refill - Chief complaint Chief Complaint: General - History obtained from History obtained from: Patient - History of Present Illness Timing: Today Pain level max: 0 Pain level now: 0 - Additonal information Additional information: out of his inhaler, requesting a new one. no symptoms. Review of Systems Constitutional: denies: Fever Respiratory: denies: Cough PD PAST MEDICAL HISTORY - Past Medical History Cardiovascular: None Respiratory: Asthma, Pneumonia Endocrine/Autoimmune: None GI: None : None HEENT: None Psych: None Musculoskeletal: None Derm: None - Past Surgical History Past Surgical History: Yes General: Splenectomy - Present Medications Home Medications: Ambulatory Orders Medication Instructions Recorded Confirmed Albuterol Sulf [Ventolin Hfa 1 - 2 puffs INH Q4HR PRN #1 inhaler 11/18/16 10/30/17 Inhaler] Fluticasone/Salmeterol [Advair 1 each IH 1-2XD #30 blst.w.dev 11/18/16 10/30/17 250-50 Diskus] Albuterol Sulf [Ventolin Hfa 1 - 2 puffs INH Q4HR PRN #1 inhaler 06/15/17 10/30/17 Inhaler] Albuterol Sulf [Ventolin Hfa 1 - 2 puffs INH Q4HR PRN #1 inhaler 10/30/17 Inhaler] Amoxicillin 875 mg PO BID #14 tablet 10/30/17 Fluticasone/Salmeterol [Advair 1 each IH BID #30 blst.w.dev 10/30/17 250-50 Diskus] Methadone 105 mg PO DAILY 10/30/17 10/30/17 Albuterol Sulfate [Proair Hfa 2 puffs INH Q4H PRN #1 inhaler 12/06/17 Inhaler] Albuterol Sulf [Ventolin Hfa 1 - 2 puffs INH Q4HR PRN #1 inhaler 02/12/19 Inhaler] Fluticasone/Salmeterol [Advair 1 each IH BID #1 disk.w.dev 02/12/19 250-50 Diskus] - Allergies Allergies/Adverse Reactions: Allergies Allergy/AdvReac Type Severity Reaction Status Date / Time No Known Drug Allergies Allergy Verified 02/12/19 10:49 - Social History Does the pt smoke?: Yes Smoking Status: Current every day smoker Does the pt drink ETOH?: No Does the pt have substance abuse?: Yes - Immunizations Immunizations are current?: Yes - POLST Patient has POLST: No PD ED PE NORMAL - Vitals Vital signs reviewed: Yes - General General: Alert and oriented X 3, No acute distress - HEENT HEENT: Moist mucous membranes - Neck Neck: Supple, no meningeal sign - Cardiac Cardiac: RRR - Respiratory Respiratory: No respiratory distress, Clear bilaterally - Derm Derm: Warm and dry - Neuro Neuro: Alert and oriented X 3 Results - Vitals Vitals: Vital Signs - 24 hr 02/12/19 10:49 Temperature 36.7 C Heart Rate 78 Respiratory 17 Rate Blood Pressure 113/69 O2 Saturation 100 Oxygen O2 Source Room air PD MEDICAL DECISION MAKING - ED course Complexity details: considered differential, d/w patient ED course: Advair and albuterol refilled. Departure - Departure Disposition: 01 Home, Self Care Clinical Impression: Asthma Qualifiers: Asthma severity: unspecified severity Asthma persistence: unspecified Asthma complication type: unspecified Qualified Code(s): J45.909 - Unspecified asthma, uncomplicated Condition: Good Instructions: ED Reactive Airway Disease Follow-Up: your,doctor for further refills. [Other] Prescriptions: Albuterol Sulf [Ventolin Hfa Inhaler] 1 - 2 puffs INH Q4HR PRN #1 inhaler PRN Reason: Shortness Of Air/Wheezing Fluticasone/Salmeterol [Advair 250-50 Diskus] 1 each IH BID #1 disk.w.dev Comments: Return if you worsen. Follow up with your doctor for further care.
== END 2019-02-12 12:15 | disposition home or self-care (01) ==
LOC: ED 10:44
DX: J45.909 Unspecified asthma, uncomplicated (principal); Z76.0 Encounter for issue of repeat prescription; F17.200 Nicotine dependence, unspecified, uncomplicated
CPT/HCPCS: 99282; 99283

== ENCOUNTER 2019-03-13 18:11 | Emergency (ER) | payer MEDICAID ==
[2019-03-13 18:32] VITALS: BP 116/76
== END 2019-03-13 19:25 | disposition left against medical advice (07) ==
LOC: ED 18:11
DX: Z53.21 Procedure and treatment not carried out due to patient leaving prior to being seen by health care provider (principal)

== ENCOUNTER 2019-12-27 10:31 | Emergency (ER) | payer MEDICAID ==
[2019-12-27 10:57] VITALS: BP 102/60
[2019-12-27] MEDS ORDERED: ALBUTEROL 1 PUFF INH STA (11:23)
--- NOTE | 2019-12-27 11:23 | ED Physician Documentation ---
PD HPI DYSPNEA - Stated complaint Stated Complaint: INHALER REFILL - Chief complaint Chief Complaint: General - History obtained from History obtained from: Patient - History of Present Illness Timing - onset: How many days ago (several) Timing - onset during: Light activity Timing - details: Intermittant, Waxing and waning Inciting event(s): Out of meds (history of asthma with regular MDI use, and is out of med. F/u appt with PCP is not for week or so.) Improved by: Inhaler/neb (which has run out.) Worsened by: Exertion, Coughing Associated symptoms: Cough, Wheezing, Chest pain / discomfort. No: Fever, Hemoptysis, Palpitations, Bilateral edema Similar symptoms before: Diagnosis (asthma and smoking related.) Review of Systems Constitutional: denies: Fever Nose: denies: Rhinorrhea / runny nose, Congestion Throat: denies: Sore throat Cardiac: denies: Chest pain / pressure, Palpitations Respiratory: reports: Dyspnea, Cough, Wheezing PD PAST MEDICAL HISTORY - Past Medical History Cardiovascular: None Respiratory: Asthma, Pneumonia Neuro: None Endocrine/Autoimmune: None GI: None : None HEENT: None Psych: None Musculoskeletal: None Derm: None - Past Surgical History Past Surgical History: Yes General: Splenectomy - Present Medications Home Medications: Ambulatory Orders Medication Instructions Recorded Confirmed Fluticasone/Salmeterol [Advair 1 each IH BID #30 blst.w.dev 10/30/17 250-50 Diskus] Methadone 169 mg PO DAILY 10/30/17 10/30/17 Albuterol Sulfate [Proair Hfa 2 puffs INH Q4H PRN #1 inhaler 12/06/17 Inhaler] Albuterol Sulf [Ventolin Hfa 1 - 2 puffs INH Q4HR PRN #1 inhaler 12/27/19 Inhaler] Sertraline [Zoloft] 0 mg DAILY 12/27/19 12/27/19 dexAMETHasone [Decadron] 4 mg PO DAILY #7 tablet 12/27/19 - Allergies Allergies/Adverse Reactions: Allergies Allergy/AdvReac Type Severity Reaction Status Date / Time No Known Drug Allergies Allergy Verified 12/27/19 10:56 - Social History Does the pt smoke?: Yes Smoking Status: Current every day smoker Does the pt drink ETOH?: No Does the pt have substance abuse?: Yes - Immunizations Immunizations are current?: Yes - POLST Patient has POLST: No PD ED PE NORMAL - Vitals Vital signs reviewed: Yes - General General: Alert and oriented X 3, No acute distress, Well developed/nourished - Neck Neck: Supple, no meningeal sign, No adenopathy - Cardiac Cardiac: RRR, No murmur - Respiratory Respiratory: No: Clear bilaterally (no coarse sounds but has diffuse exp wheezing. ) - Extremities Extremities: No edema, No calf tenderness / cord - Neuro Neuro: Alert and oriented X 3, No motor deficit, Normal speech Results - Vitals Vitals: Vital Signs - 24 hr 12/27/19 12/27/19 10:54 11:42 Temperature 36.9 C Heart Rate 85 88 Respiratory 16 18 Rate Blood Pressure 102/60 O2 Saturation 95 Oxygen O2 Source Room air PD MEDICAL DECISION MAKING - ED course Complexity details: considered differential (no notable illness, but needs refill for his Med (albuterol MDI).), d/w patient Departure - Departure Disposition: 01 Home, Self Care Clinical Impression: Exacerbation of asthma Qualifiers: Asthma severity: mild Asthma persistence: intermittent Qualified Code(s): J45.21 - Mild intermittent asthma with (acute) exacerbation Condition: Stable Record reviewed to determine appropriate education?: Yes Prescriptions: Albuterol Sulf [Ventolin Hfa Inhaler] 1 - 2 puffs INH Q4HR PRN #1 inhaler PRN Reason: Shortness Of Air/Wheezing dexAMETHasone [Decadron] 4 mg PO DAILY #7 tablet Comments: Continue your usual inhaler several times a day. Added times if needed. Use Decadron steroid daily for the next week to reduce the current exacerbation. Recheck if not improving well Discharge Date/Time: 12/27/19 11:59
[2019-12-27] MEDS ORDERED: CHERRY SYRUP 10 ML UDC PO ONE (11:24)
[2019-12-27] MEDS ORDERED: DEXAMETHASONE 10 MG/ML VIAL PO STA (11:24)
== END 2019-12-27 11:59 | disposition home or self-care (01) ==
LOC: ED 10:31
DX: J45.21 Mild intermittent asthma with (acute) exacerbation (principal); Z76.0 Encounter for issue of repeat prescription; F17.200 Nicotine dependence, unspecified, uncomplicated
CPT/HCPCS: 94640; 99283; 99284; A9270

== ENCOUNTER 2020-02-14 17:45 | Emergency (ER) | payer MEDICAID ==
[2020-02-14 17:51] VITALS: BP 136/83
== END 2020-02-14 18:20 | disposition left against medical advice (07) ==
LOC: ED 17:45
DX: Z53.21 Procedure and treatment not carried out due to patient leaving prior to being seen by health care provider (principal)

== ENCOUNTER 2020-02-27 19:16 | Outpatient (CLI) | payer MEDICAID ==
--- OUTSIDE RECORDS SUMMARY | 2020-03-05 01:23 | EXTERNAL MEDICAL SUMMARY RPT | Continuity of Care Document ---
:1970 Demographics Phone Unavailable Preferred Language Unknown Marital Status Unknown Scientology Affiliation Unknown Race Unknown Ethnic Group Unknown Author Organization [place] Address [address] [phone] Phone Care Team Providers Name Role Phone Fly Unavailable Unavailable Spangler Unavailable Unavailable [place] Unavailable Unavailable Problems date description facility 2012-09-03 01:23 SEPTICEMIA NOS [facility] 2012-09-03 01:23 UNSPECIFIED VIRAL HEPATITIS C [facility] WITHOUT HEPATIC COMA 2012-09-03 01:23 TOBACCO USE DISORDER [facility] 2012-09-03 01:23 ASTHMA, UNSPECIFIED [facility] 2012-09-03 01:23 ACUTE PROSTATITIS [facility] 2012-09-03 01:23 ABSCESS OF PROSTATE [facility] 2012-09-03 01:23 URINARY FREQUENCY [facility] 2012-09-03 01:23 URGENCY OF URINATION [facility] 2012-09-03 01:23 SEPSIS [facility] 2012-09-03 01:23 ACQRD ABSENCE OF OTH ORGAN [facility] 2013-04-09 08:25 TOBACCO USE DISORDER [facility] 2013-04-09 08:25 CELLULITIS OF ARM [facility] 2013-12-24 10:07 TOBACCO USE DISORDER [facility] 2013-12-24 10:07 ASTHMA, UNSPECIFIED [facility] 2013-12-24 10:07 SHORTNESS OF BREATH [facility] 2014-03-11 09:52 TOBACCO USE DISORDER [facility] 2014-03-11 09:52 ASTHMA, UNSPECIFIED, W (ACUTE) [facility] EXACERBATION 2014-03-11 09:52 OTHER DENTAL CARIES [facility] 2014-03-11 09:52 SHORTNESS OF BREATH [facility] 2014-04-16 08:32 ASTHMA, UNSPECIFIED [facility] 2014-04-16 08:32 AC APICAL PERIODONTITIS [facility] 2014-04-16 08:32 PEPTIC ULCER NOS [facility] 2014-04-16 08:32 COUGH [facility] 2014-05-31 15:34 TOBACCO USE DISORDER [facility] 2014-05-31 15:34 ASTHMA, UNSPECIFIED [facility] 2014-05-31 15:34 RESPIRATORY ABNORM NEC [facility] 2014-07-08 13:57 TOBACCO USE DISORDER [facility] 2014-07-08 13:57 ASTHMA, UNSPECIFIED [facility] 2014-07-08 13:57 UNSPEC DENTAL CARIES [facility] 2014-07-08 13:57 AC APICAL PERIODONTITIS [facility] 2014-07-08 13:57 RESPIRATORY ABNORM NEC [facility] 2014-10-09 07:16 OPIOID DEPENDENCE-UNSPEC [facility] 2014-10-09 07:16 TOBACCO USE DISORDER [facility] 2014-10-09 07:16 ASTHMA, UNSPECIFIED, W (ACUTE) [facility] EXACERBATION 2014-10-09 07:16 RESPIRATORY ABNORM [facility] 2014-12-04 09:40 NICOTINE DEPENDENCE, [facility] UNSPECIFIED, UNCOMPLICATED 2014-12-04 09:40 UNSPECIFIED ASTHMA, [facility] UNCOMPLICATED 2014-12-04 09:40 LOW BACK PAIN [facility] 2014-12-04 09:40 PAIN IN RIGHT HAND [facility] 2014-12-04 09:40 HEMATURIA, UNSPECIFIED [facility] 2014-12-04 09:40 NONDISP FX OF NECK OF SECOND [facility] BONE, RIGHT HAND, INIT 2014-12-31 14:27 NICOTINE DEPENDENCE, [facility] UNSPECIFIED, UNCOMPLICATED 2014-12-31 14:27 MILD INTERMITTENT ASTHMA, [facility] UNCOMPLICATED 2014-12-31 14:27 SHORTNESS OF BREATH [facility] 2015-02-17 14:27 NICOTINE DEPENDENCE, [facility] UNSPECIFIED, UNCOMPLICATED 2015-02-17 14:27 MODERATE PERSISTENT ASTHMA WITH [facility] (ACUTE) EXACERBATION 2015-02-17 14:27 SHORTNESS OF BREATH [facility] 2015-03-20 14:30 NICOTINE DEPENDENCE, [facility] UNSPECIFIED, UNCOMPLICATED 2015-03-20 14:30 MODERATE PERSISTENT ASTHMA WITH [facility] (ACUTE) EXACERBATION 2015-03-20 14:30 DYSPNEA, UNSPECIFIED [facility] 2015-04-29 12:02 NICOTINE DEPENDENCE, [facility] UNSPECIFIED, UNCOMPLICATED 2015-04-29 12:02 UNSPECIFIED ASTHMA, [facility] UNCOMPLICATED 2015-04-29 12:02 PLEURODYNIA [facility] 2015-04-29 12:02 CONTUSION OF RIGHT FRONT WALL OF [facility] THORAX, INITIAL ENCOUNTER 2015-04-29 12:02 OTHER FALL FROM ONE LEVEL TO [facility] ANOTHER, INITIAL ENCOUNTER 2015-09-04 13:28 NICOTINE DEPENDENCE, [facility] UNSPECIFIED, UNCOMPLICATED 2015-09-04 13:28 SWIMMER'S EAR, RIGHT EAR [facility] 2015-09-04 13:28 UNSPECIFIED ASTHMA, [facility] UNCOMPLICATED 2015-09-04 13:28 PUNCTURE WOUND WITHOUT FOREIGN [facility] BODY, RIGHT FOOT, INIT ENCNTR 2015-09-04 13:28 UNSPECIFIED INJURY OF RIGHT [facility] FOOT, INITIAL ENCOUNTER 2015-09-04 13:28 FALL SAME LEV FR SLIP/TRIP W [facility] STRK AGNST OTH SHARP OBJ, INIT 2015-09-04 13:28 CONTACT WITH KNIFE, INITIAL 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 ENCOUNTER 2015-09-07 14:[address] [facility] 2015-11-20 08:11 NICOTINE DEPENDENCE, [facility] UNSPECIFIED, UNCOMPLICATED 2015-11-20 08:11 UNSPECIFIED ASTHMA, [facility] UNCOMPLICATED 2015-11-20 08:11 DYSPNEA, UNSPECIFIED [facility] 2016-07-21 17:27 MILD INTERMITTENT ASTHMA WITH [facility] (ACUTE) EXACERBATION 2016-07-21 17:27 WHEEZING [facility] 2016-07-21 17:27 PERSONAL HISTORY OF NICOTINE [facility] DEPENDENCE 2016-08-14 12:47 UNSPECIFIED ASTHMA, [facility] UNCOMPLICATED 2016-08-14 12:47 WHEEZING [facility] 2016-08-14 12:47 PERSONAL HISTORY OF NICOTINE [facility] DEPENDENCE 2016-08-30 21:47 UNSPECIFIED ASTHMA WITH (ACUTE) [facility] EXACERBATION 2016-08-30 21:47 SHORTNESS OF BREATH [facility] 2016-08-30 21:47 PERSONAL HISTORY OF NICOTINE [facility] DEPENDENCE 2016-10-18 17:14 UNSPECIFIED ASTHMA, [facility] UNCOMPLICATED 2016-10-18 17:14 DYSPNEA, UNSPECIFIED [facility] 2016-10-18 17:14 PERSONAL HISTORY OF NICOTINE [facility] DEPENDENCE 2016-11-02 04:35 UNSPECIFIED ASTHMA, [facility] UNCOMPLICATED 2016-11-02 04:35 SHORTNESS OF BREATH [facility] 2016-11-02 04:35 PERSONAL HISTORY OF NICOTINE [facility] DEPENDENCE 2016-11-18 06:31 UNSPECIFIED ASTHMA, [facility] UNCOMPLICATED 2016-11-18 06:31 SHORTNESS OF BREATH [facility] 2017-01-10 16:33 UNSPECIFIED ASTHMA, [facility] UNCOMPLICATED 2017-01-10 16:33 LOW BACK PAIN [facility] 2017-01-10 16:33 DYSPNEA, UNSPECIFIED [facility] 2017-06-15 06:33 NICOTINE DEPENDENCE, [facility] UNSPECIFIED, UNCOMPLICATED 2017-06-15 06:33 ACUTE SUPPR OTITIS MEDIA W/O [facility] SPON RUPT EAR DRUM, BILATERAL 2017-06-15 06:33 MODERATE PERSISTENT ASTHMA WITH [facility] (ACUTE) EXACERBATION 2017-06-15 06:33 DYSPNEA, UNSPECIFIED [facility] 2017-10-30 07:10 NICOTINE DEPENDENCE, [facility] UNSPECIFIED, UNCOMPLICATED 2017-10-30 07:10 UNSPECIFIED ASTHMA, [facility] UNCOMPLICATED 2017-10-30 07:10 PERIAPICAL ABSCESS WITHOUT SINUS [facility] 2017-10-30 07:10 DYSPNEA, UNSPECIFIED [facility] 2017-10-30 07:10 UNDERDOSING OF ANTIASTHMATICS, [facility] INITIAL ENCOUNTER 2017-10-30 07:10 PATIENT'S INTENTL UNDRDOSE OF [facility] MEDS REGIMEN FOR OTH REASON 2017-11-10 18:01 ENCOUNTER FOR OTHER SPECIFIED [facility] SPECIAL EXAMINATIONS 2019-12-27 10:31 WHEEZING [facility] 2019-12-27 10:31 NICOTINE DEPENDENCE, [facility] UNSPECIFIED, UNCOMPLICATED 2019-12-27 10:31 MILD INTERMITTENT ASTHMA WITH [facility] (ACUTE) EXACERBATION 2019-12-27 10:31 ENCOUNTER FOR ISSUE OF REPEAT [facility] PRESCRIPTION 2020-02-14 17:45 SHORTNESS OF BREATH [facility] 2020-02-14 17:45 PROC/TRTMT NOT CRD OUT D/T PT LV [facility] BEF SEEN BY [facility] CARE PROV 2020-02-14 17:45 PROC/TRTMT NOT CRD OUT D/T PT LV [facility] BEF SEEN BY [facility] 2020-02-27 19:28 OPIOID DEPENDENCE WITH [facility] edical [place] INTOXICATION, UNSPECIFIED 2020-02-27 19:28 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, UNSP 2020-02-27 19:28 NICOTINE DEPENDENCE, [facility] [place] UNSPECIFIED, UNCOMPLICATED 2020-02-27 19:28 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, UNCOMPLICATED 2020-02-27 19:28 CARDIAC ARREST, CAUSE [facility] dical Center UNSPECIFIED 2020-02-27 19:28 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, [facility]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, INITIAL ENCOUNT 2020-02-27 19:28 CONTACT W AND EXPOSURE TO OTH [facility] VIRAL COMMUNICABLE D 2020-02-28 02:41 Post arrest, OD [employer] Allergies date description facility BRILLIANT SCARLET [facility] ACETAMINOPHEN [facility] DULOXETINE [facility] GEMFIBROZIL [facility] PRAVASTATIN [facility] SPIRONOLACTONE [facility] SULFAMETHOXAZOLE W/TRIMETHOPRIM [facility] (CO-TRIMOXAZOLE) [facility] PENICILLINS [facility] STATINS [facility] OXYCODONE [place] [facility] PENICILLINS [facility] NO KNOWN ALLERGIES [facility] OPIOIDS - MORPHINE ANALOGUES [facility] PENICILLINS [facility] SULFA (SULFONAMIDE ANTIBIOTICS) [facility] [id number] REDUCTASE INHIBITORS W [facility] BIGUANIDES [facility] NO KNOWN ALLERGIES [facility] NITROUS OXIDE [facility] MORPHINE [facility] CODEINE [facility] OXYCODONE [facility] BUPRENORPHINE HCL [facility] CARISOPRODOL [facility] TROPICAMIDE [facility] ACETAZOLAMIDE [facility] HYDROCHLOROTHIAZIDE [facility] CIPROFLOXACIN HCL [facility] DILTIAZEM HCL [facility] GUAIFENESIN [facility] ERYTHROMYCIN [facility] No Known Drug Allergies [facility] P[facility]ICILLINS [facility] TR[facility]ICAMIDE [facility] CIPROFLOXACIN HCL [facility] PENICILLINS [facility] NO KNOWN ALLERGIES [facility] TROPICAMIDE [facility] CIPROFLOXACIN HCL [facility] Results Social History date description facility [id number]
--- OUTSIDE RECORDS SUMMARY | 2020-03-05 01:23 | EXTERNAL MEDICAL SUMMARY RPT | Continuity of Care Document ---
:1970 Demographics Phone Unavailable Preferred Language Unknown Marital Status Unknown Buddhism Affiliation Unknown Race Unknown Ethnic Group Unknown Author Organization [place] Address [address] [phone] Phone Care Team Providers Name Role Phone Spangler Unavailable Unavailable [place] Unavailable Unavailable [place] Unavailable Unavailable Problems date description facility 2012-09-03 01:23 SEPTICEMIA NOS [facility] 2012-09-03 01:23 UNSPECIFIED VIRAL HEPATITIS C [facility] WITHOUT HEPATIC COMA 2012-09-03 01:23 TOBACCO USE DISORDER [facility] 2012-09-03 01:23 ASTHMA, UNSPECIFIED [facility] 2012-09-03 01:23 ACUTE PROSTATITIS [facility] 2012-09-03 01:23 ABSCESS OF PROSTATE [facility] 2012-09-03 01:23 URINARY FREQUENCY [facility] 2012-09-03 01:23 URGENCY OF URINATION [facility] 2012-09-03 01:23 SEPSIS [facility] 2012-09-03 01:23 ACQRD ABSENCE OF OTH ORGAN [facility] 2013-04-09 08:25 TOBACCO USE DISORDER [facility] 2013-04-09 08:25 CELLULITIS OF ARM [facility] 2013-12-24 10:07 TOBACCO USE DISORDER [facility] 2013-12-24 10:07 ASTHMA, UNSPECIFIED [facility] 2013-12-24 10:07 SHORTNESS OF BREATH [facility] 2014-03-11 09:52 TOBACCO USE DISORDER [facility] 2014-03-11 09:52 ASTHMA, UNSPECIFIED, W (ACUTE) [facility] EXACERBATION 2014-03-11 09:52 OTHER DENTAL CARIES [facility] 2014-03-11 09:52 SHORTNESS OF BREATH [facility] 2014-04-16 08:32 ASTHMA, UNSPECIFIED [facility] 2014-04-16 08:32 AC APICAL PERIODONTITIS [facility] 2014-04-16 08:32 PEPTIC ULCER NOS [facility] 2014-04-16 08:32 COUGH [facility] 2014-05-31 15:34 TOBACCO USE DISORDER [facility] 2014-05-31 15:34 ASTHMA, UNSPECIFIED [facility] 2014-05-31 15:34 RESPIRATORY ABNORM NEC [facility] 2014-07-08 13:57 TOBACCO USE DISORDER [facility] 2014-07-08 13:57 ASTHMA, UNSPECIFIED [facility] 2014-07-08 13:57 UNSPEC DENTAL CARIES [facility] 2014-07-08 13:57 AC APICAL PERIODONTITIS [facility] 2014-07-08 13:57 RESPIRATORY ABNORM NEC [facility] 2014-10-09 07:16 OPIOID DEPENDENCE-UNSPEC [facility] 2014-10-09 07:16 TOBACCO USE DISORDER [facility] 2014-10-09 07:16 ASTHMA, UNSPECIFIED, W (ACUTE) [facility] EXACERBATION 2014-10-09 07:16 RESPIRATORY ABNORM [facility] 2014-12-04 09:40 NICOTINE DEPENDENCE, [facility] UNSPECIFIED, UNCOMPLICATED 2014-12-04 09:40 UNSPECIFIED ASTHMA, [facility] UNCOMPLICATED 2014-12-04 09:40 LOW BACK PAIN [facility] 2014-12-04 09:40 PAIN IN RIGHT HAND [facility] 2014-12-04 09:40 HEMATURIA, UNSPECIFIED [facility] 2014-12-04 09:40 NONDISP FX OF NECK OF SECOND [facility] BONE, RIGHT HAND, INIT 2014-12-31 14:27 NICOTINE DEPENDENCE, [facility] UNSPECIFIED, UNCOMPLICATED 2014-12-31 14:27 MILD INTERMITTENT ASTHMA, [facility] UNCOMPLICATED 2014-12-31 14:27 SHORTNESS OF BREATH [facility] 2015-02-17 14:27 NICOTINE DEPENDENCE, [facility] UNSPECIFIED, UNCOMPLICATED 2015-02-17 14:27 MODERATE PERSISTENT ASTHMA WITH [facility] (ACUTE) EXACERBATION 2015-02-17 14:27 SHORTNESS OF BREATH [facility] 2015-03-20 14:30 NICOTINE DEPENDENCE, [facility] UNSPECIFIED, UNCOMPLICATED 2015-03-20 14:30 MODERATE PERSISTENT ASTHMA WITH [facility] (ACUTE) EXACERBATION 2015-03-20 14:30 DYSPNEA, UNSPECIFIED [facility] 2015-04-29 12:02 NICOTINE DEPENDENCE, [facility] UNSPECIFIED, UNCOMPLICATED 2015-04-29 12:02 UNSPECIFIED ASTHMA, [facility] UNCOMPLICATED 2015-04-29 12:02 PLEURODYNIA [facility] 2015-04-29 12:02 CONTUSION OF RIGHT FRONT WALL OF [facility] THORAX, INITIAL ENCOUNTER 2015-04-29 12:02 OTHER FALL FROM ONE LEVEL TO [facility] ANOTHER, INITIAL ENCOUNTER 2015-09-04 13:28 NICOTINE DEPENDENCE, [facility] UNSPECIFIED, UNCOMPLICATED 2015-09-04 13:28 SWIMMER'S EAR, RIGHT EAR [facility] 2015-09-04 13:28 UNSPECIFIED ASTHMA, [facility] UNCOMPLICATED 2015-09-04 13:28 PUNCTURE WOUND WITHOUT FOREIGN [facility] BODY, RIGHT FOOT, INIT ENCNTR 2015-09-04 13:28 UNSPECIFIED INJURY OF RIGHT [facility] FOOT, INITIAL ENCOUNTER 2015-09-04 13:28 FALL SAME LEV FR SLIP/TRIP W [facility] STRK AGNST OTH SHARP OBJ, INIT 2015-09-04 13:28 CONTACT WITH KNIFE, INITIAL [facility] ENCOUNTER 2015-09-04 13:28 ENCOUNTER FOR IMMUNIZATION [facility] 2015-09-07 14:57 NICOTINE DEPENDENCE, [facility] UNSPECIFIED, UNCOMPLICATED 2015-09-07 14:57 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, UNCOMPLICATED 2015-09-07 14:57 UNSPECIFIED ASTHMA, [facility] UNCOMPLICATED 2015-09-07 14:57 CELLULITIS OF RIGHT LOWER LIMB [facility] 2015-09-07 14:57 LACERATION WITHOUT FOREIGN BODY, [facility] RIGHT FOOT, INIT ENCNTR 2015-09-07 14:57 PUNCTURE WOUND WITHOUT FOREIGN [facility] BODY, RIGHT FOOT, INIT ENCNTR 2015-09-07 14:57 FALL SAME LEV FROM SLIP/TRIP W/O [facility] STRIKE AGAINST OBJECT, INIT 2015-09-07 14:57 CONTACT WITH KNIFE, INITIAL [facility] ENCOUNTER 2015-09-07 14:[address] [facility] 2015-11-20 08:11 NICOTINE DEPENDENCE, [facility] UNSPECIFIED, UNCOMPLICATED 2015-11-20 08:11 UNSPECIFIED ASTHMA, [facility] UNCOMPLICATED 2015-11-20 08:11 DYSPNEA, UNSPECIFIED [facility] 2016-07-21 17:27 MILD INTERMITTENT ASTHMA WITH [facility] (ACUTE) EXACERBATION 2016-07-21 17:27 WHEEZING [facility] 2016-07-21 17:27 PERSONAL HISTORY OF NICOTINE [facility] DEPENDENCE 2016-08-14 12:47 UNSPECIFIED ASTHMA, [facility] UNCOMPLICATED 2016-08-14 12:47 WHEEZING [facility] 2016-08-14 12:47 PERSONAL HISTORY OF NICOTINE [facility] DEPENDENCE 2016-08-30 21:47 UNSPECIFIED ASTHMA WITH (ACUTE) [facility] EXACERBATION 2016-08-30 21:47 SHORTNESS OF BREATH [facility] 2016-08-30 21:47 PERSONAL HISTORY OF NICOTINE [facility] DEPENDENCE 2016-10-18 17:14 UNSPECIFIED ASTHMA, [facility] UNCOMPLICATED 2016-10-18 17:14 DYSPNEA, UNSPECIFIED [facility] 2016-10-18 17:14 PERSONAL HISTORY OF NICOTINE [facility] DEPENDENCE 2016-11-02 04:35 UNSPECIFIED ASTHMA, [facility] UNCOMPLICATED 2016-11-02 04:35 SHORTNESS OF BREATH [facility] 2016-11-02 04:35 PERSONAL HISTORY OF NICOTINE [facility] DEPENDENCE 2016-11-18 06:31 UNSPECIFIED ASTHMA, [facility] UNCOMPLICATED 2016-11-18 06:31 SHORTNESS OF BREATH [facility] 2017-01-10 16:33 UNSPECIFIED ASTHMA, [facility] UNCOMPLICATED 2017-01-10 16:33 LOW BACK PAIN [facility] 2017-01-10 16:33 DYSPNEA, UNSPECIFIED [facility] 2017-06-15 06:33 NICOTINE DEPENDENCE, [facility] UNSPECIFIED, UNCOMPLICATED 2017-06-15 06:33 ACUTE SUPPR OTITIS MEDIA W/O [facility] SPON RUPT EAR DRUM, BILATERAL 2017-06-15 06:33 MODERATE PERSISTENT ASTHMA WITH [facility] (ACUTE) EXACERBATION 2017-06-15 06:33 DYSPNEA, UNSPECIFIED [facility] 2017-10-30 07:10 NICOTINE DEPENDENCE, [facility] UNSPECIFIED, UNCOMPLICATED 2017-10-30 07:10 UNSPECIFIED ASTHMA, [facility] UNCOMPLICATED 2017-10-30 07:10 PERIAPICAL ABSCESS WITHOUT SINUS [facility] 2017-10-30 07:10 DYSPNEA, UNSPECIFIED [facility] 2017-10-30 07:10 UNDERDOSING OF ANTIASTHMATICS, [facility] INITIAL ENCOUNTER 2017-10-30 07:10 PATIENT'S INTENTL UNDRDOSE OF [facility] MEDS REGIMEN FOR OTH REASON 2017-11-10 18:01 ENCOUNTER FOR OTHER SPECIFIED [facility] SPECIAL EXAMINATIONS 2019-12-27 10:31 WHEEZING [facility] 2019-12-27 10:31 NICOTINE DEPENDENCE, [facility] UNSPECIFIED, UNCOMPLICATED 2019-12-27 10:31 MILD INTERMITTENT ASTHMA WITH [facility] (ACUTE) EXACERBATION 2019-12-27 10:31 ENCOUNTER FOR ISSUE OF REPEAT [facility] PRESCRIPTION 2020-02-14 17:45 SHORTNESS OF BREATH [facility] 2020-02-14 17:45 PROC/TRTMT NOT CRD OUT D/T PT LV [facility] BEF SEEN BY [facility] CARE PROV 2020-02-14 17:45 PROC/TRTMT NOT CRD OUT D/T PT LV [facility] BEF SEEN BY [facility] 2020-02-27 19:28 OPIOID DEPENDENCE WITH [facility] [place] INTOXICATION, UNSPECIFIED 2020-02-27 19:28 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, UNSP 2020-02-27 19:28 NICOTINE DEPENDENCE, [facility] [place] UNSPECIFIED, UNCOMPLICATED 2020-02-27 19:28 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, UNCOMPLICATED 2020-02-27 19:28 CARDIAC ARREST, CAUSE [facility] UNSPECIFIED 2020-02-27 19:28 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, [facility]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, INITIAL ENCOUNT 2020-02-27 19:28 CONTACT W AND EXPOSURE TO OTH [facility] VIRAL COMMUNICABLE D 2020-02-28 02:41 Post arrest, OD [email or web address] Allergies date description facility BRILLIANT SCARLET [facility] ACETAMINOPHEN [facility] DULOXETINE [facility] GEMFIBROZIL [facility] PRAVASTATIN [facility] SPIRONOLACTONE [facility] SULFAMETHOXAZOLE W/TRIMETHOPRIM [facility] (CO-TRIMOXAZOLE) [facility] PENICILLINS [facility] STATINS [facility] OXYCODONE [facility] PENICILLINS [facility] NO KNOWN ALLERGIES [facility] OPIOIDS - MORPHINE ANALOGUES [facility] PENICILLINS [facility] SULFA (SULFONAMIDE ANTIBIOTICS) [facility] [id number] REDUCTASE INHIBITORS W [facility]ES [facility] NO KNOWN ALL[facility]GIES [facility] NITROUS OXIDE [facility] MORPHINE [facility] CODEINE [facility] OXYCODONE [facility] BUPRENORPHINE [facility]CL [facility] CARISOPRODOL [facility] TROPICAMIDE [facility] ACETAZOLAMIDE [facility] HYDROCHLOROTHIAZIDE [facility] CIPROFLOXACIN HCL [facility] DILTIAZEM [facility]CL [facility] GUAIFENESIN [facility] ERYTHROMYCIN [facility] No Known Drug Allergies [facility] TROPICAMIDE [facility] CIPROFLOXACIN HCL [facility] P[facility]ICILLINS [facility] NO KNOWN ALLERGIES [facility] TROPICAMIDE [facility] CIPROFLOXACIN HCL [facility] Results Social History date description facility [id number]
== END 2020-02-27 19:17 | disposition critical access hospital (66) ==
LOC: EMS 19:16
PROVIDERS: ATTEND Surgery
DX: T40.1X1A Poisoning by heroin, accidental (unintentional), initial encounter (principal); I46.9 Cardiac arrest, cause unspecified
CPT/HCPCS: A0425; A0433; A0999

== ENCOUNTER 2020-02-27 19:28 | Emergency (ER) | payer MEDICAID ==
[2020-02-27] MEDS ORDERED: EPINEPHrine 1 MG/ML AMP ONE ×2 (19:48→23:42)
[2020-02-27] MEDS: EPINEPHrine 4 MG in DEXTROSE 5% 246 ML IV STA ×2 (19:57→23:40)
--- NOTE | 2020-02-27 20:01 | ED Physician Documentation ---
PD HPI CPR - Stated complaint Stated Complaint: CPR - History obtained from History obtained from: Friend, EMS - History of Present Illness Timing - onset: Today Timing - onset during: Light activity Preceding symptoms: Other (decreased alertness and stopped breathing) Contributing factors: Depressed / OD (Patient reportedly from EMS had been with friends and they were doing IV drugs. The patient told his friends he took a lot of heroin and to call for help. The patient became unresponsive. Bystanders administered Narcan and did CPR. EMS arrived they state within 5 to 10 minutes. ACLS initiated.) Recently seen: Not recently seen Bystander CPR: Bystander CPR (immediately) EMS findings: Unresponsive, Apneic, Pulseless, PEA (in and out of ROSC with pulses few minutes at a time. Prehospital was about 45 minutes. 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, Intubated, Epi Advanced directive: No advanced directive Review of Systems Unable to obtain: Unresponsive, Intubated, Other (I did talk with his mother, who states no DNR nor POLST forms, and was not aware of recent illness otherwise.) PD PAST MEDICAL HISTORY - Past Medical History Cardiovascular: None Respiratory: Asthma, Pneumonia Neuro: None Endocrine/Autoimmune: None GI: None : None HEENT: None Psych: None Musculoskeletal: None Derm: None - Past Surgical History Past Surgical History: Yes General: Splenectomy - Present Medications Home Medications: Ambulatory Orders Medication Instructions Recorded Confirmed Fluticasone/Salmeterol [Advair 1 each IH BID #30 blst.w.dev 10/30/17 250-50 Diskus] Methadone 169 mg PO DAILY 10/30/17 10/30/17 Albuterol Sulfate [Proair Hfa 2 puffs INH Q4H PRN #1 inhaler 12/06/17 Inhaler] Albuterol Sulf [Ventolin Hfa 1 - 2 puffs INH Q4HR PRN #1 inhaler 12/27/19 Inhaler] Sertraline [Zoloft] 0 mg DAILY 12/27/19 12/27/19 dexAMETHasone [Decadron] 4 mg PO DAILY #7 tablet 12/27/19 - Allergies Allergies/Adverse Reactions: Allergies Allergy/AdvReac Type Severity Reaction Status Date / Time No Known Drug Allergies Allergy Verified 02/14/20 17:47 - Living Situation Living Situation: reports: With family (mother), With friend(s) (he reportedly does not have home of his own, but lives with friends or with his mother) Living Arrangement: reports: At home - Social History Does the pt smoke?: Yes Smoking Status: Current every day smoker Does the pt drink ETOH?: No Does the pt have substance abuse?: Yes Substance Use and Type: Marijuana, Meth, Heroin, Prescription Pills - Immunizations Immunizations are current?: Yes - POLST Patient has POLST: No PD ED PE NORMAL - Vitals Vital signs reviewed: Yes (intubated with diminished breath sounds bliaterally. Pulses palpable. ) - General General: Other (intubated, dilated and unresponsive pupils. No respiratory effort nor movements. ) - HEENT HEENT: Atraumatic, Other. No: Dentition benign (multiple caries and missing/broken teeth. ETT with bite block in place. ) - Neck Neck: No JVD - Cardiac Cardiac: RRR (diminished sounds. Bedside U/S showing generally diminished contractility. No effusion seen. No apparent PTX either side. ) - Respiratory Respiratory: No: Clear bilaterally (lung sounds diminished both sides soon after arrival/transfer to [facility]. Possible dislodgement of ETT on transfer. Sats lowering. ETT removed and patient bagged, then reintubated with good position. ) - Abdomen Abdomen: Non distended. No: Normal bowel sounds (absent) - Derm Derm: No: Normal color (dusky color in neck/chest. Pallor generally. ) - Extremities Extremities: No deformity - Neuro Neuro: Other (no reflexes). No: Alert and oriented X 3 Eye Opening: None Motor: None Verbal: None GCS Score: 3 Results - Vitals Vitals: Vital Signs - 24 hr 02/27/20 02/27/20 02/27/20 19:40 19:48 20:00 Temperature Heart Rate 92 112 H 111 H Respiratory 20 48 H 20 Rate Blood Pressure 65/43 L 44/35 L 71/40 L O2 Saturation 85 L 85 L 98 02/27/20 02/27/20 02/27/20 20:20 21:00 22:35 Temperature 34.3 C L 33.4 C L Heart Rate 68 88 82 Respiratory 20 20 Rate Blood Pressure 79/40 L 79/43 L O2 Saturation 100 99 02/27/20 02/27/20 02/27/20 22:50 23:00 23:10 Temperature 32.6 C L 32.6 C L 32.7 C L Heart Rate 85 87 88 Respiratory 18 20 23 Rate Blood Pressure 82/50 L 91/49 L 80/51 L O2 Saturation 98 96 96 02/27/20 02/28/20 02/28/20 23:30 00:05 00:13 Temperature 32.7 C L 32.8 C L 33 C L Heart Rate 91 82 101 H Respiratory 23 16 20 Rate Blood Pressure 85/55 L 85/45 L 91/57 L O2 Saturation 95 100 89 L 02/28/20 02/28/20 02/28/20 00:15 00:23 00:29 Temperature 33 C L 33.1 C L 33.1 C L Heart Rate 102 H 108 H 111 H Respiratory 27 H 18 19 Rate Blood Pressure 88/54 L 95/67 95/67 O2 Saturation 88 L 89 L 89 L Oxygen O2 Source Mechanical ventilator - EKG (time done) 20:05 Rate: Rate (enter#) (63) Rhythm: NSR [place]: Normal Intervals: RBBB Ischemia: Non specific changes. No: ST elevation c/w ischemia - Labs Labs: Laboratory Tests 02/27/20 02/27/20 02/27/20 19:54 19:54 20:03 WBC 10.8 RBC 4.15 L Hgb 12.4 L Hct 42.6 MCV 102.7 H MCH 29.9 MCHC 29.1 L RDW 13.2 Plt Count 187 MPV 10.6 Neut # (Auto) 3.4 Lymph # (Auto) 6.0 H [place] # (Auto) 0.4 Eos # (Auto) 0.4 Baso # (Auto) 0.1 Absolute Nucleated RBC 0.03 Nucleated RBC % 0.3 Manual Slide Review Indicated Platelet Estimate NORMAL (130-450,000) Platelet Morphology NORMAL APPEARANCE RBC Morph Micro Appear 2+ ACANTHOCYTES Bld Gas Analysis Time Sample Site ABG pH ABG pCO2 ABG pO2 ABG HCO3 ABG Total CO2 ABG O2 Saturation ABG Base Excess Jomar Test Respiration Rate O2 Delivery Device Vent Mode FiO2 Tidal Volume PEEP Pressure Support Vent Sodium 145 Potassium 4.9 Chloride 104 Carbon Dioxide 16 L Anion Gap 25.0 H BUN 14 Creatinine 1.1 Estimated GFR (MDRD) 71 L Glucose 233 H Calcium 8.8 Magnesium 3.0 H Total Bilirubin 0.5 AST 436 H ALT 405 H Alkaline Phosphatase 71 Total Protein 5.6 L Albumin 3.0 L Globulin 2.6 Albumin/Globulin Ratio 1.2 Lipase 47 Urine Color YELLOW Urine Clarity CLEAR Urine pH 5.5 Ur Specific [place] >=1.030 H Urine Protein TRACE Urine Glucose (UA) NEGATIVE Urine Ketones NEGATIVE Urine Occult Blood NEGATIVE Urine Nitrite NEGATIVE Urine Bilirubin NEGATIVE Urine Urobilinogen 0.2 (NORMAL) Ur Leukocyte Esterase NEGATIVE Ur Microscopic Review NOT INDICATED Urine Culture Comments NOT INDICATED Nasal Adenovirus (PCR) Nasal B. parapertussis DNA (PCR) Nasal Coronavir 229E PCR Nasal Coronavir HKU1 PCR Nasal Coronavir NL63 PCR Nasal Coronavir OC43 PCR Nasal Enterovir/Rhinovir PCR Nasal Influenza B PCR Nasal Influenza A PCR Nasal Parainfluen 1 PCR Nasal Parainfluen 2 PCR Nasal Parainfluen 3 PCR Nasal Parainfluen 4 PCR Nasal RSV (PCR) Nasal B.pertussis DNA PCR Nasal C.pneumoniae (PCR) Giovanni Human Metapneumo PCR Nasal M.pneumoniae (PCR) Nasal SARS-CoV-2 (PCR) Urine Opiates Screen POSITIVE H Ur Oxycodone Screen NEGATIVE Urine Methadone Screen POSITIVE H Ur Propoxyphene Screen NEGATIVE Ur Barbiturates Screen NEGATIVE Ur Tricyclics Screen NEGATIVE Ur Phencyclidine Scrn NEGATIVE Ur Amphetamine Screen POSITIVE H U Methamphetamines Scrn POSITIVE H U Benzodiazepines Scrn NEGATIVE Urine Cocaine Screen NEGATIVE U Cannabinoids Screen POSITIVE H 02/27/20 02/27/20 02/27/20 20:08 20:20 22:26 WBC RBC Hgb Hct MCV MCH MCHC RDW Plt Count MPV Neut # (Auto) Lymph # (Auto) [place] # (Auto) Eos # (Auto) Baso # (Auto) Absolute Nucleated RBC Nucleated RBC % Manual Slide Review Platelet Estimate Platelet Morphology RBC Morph Micro Appear Bld Gas Analysis Time 2023 2229 Sample Site RIGHT RADIAL A-LINE ABG pH 6.65 L* 7.04 L* ABG pCO2 94 H* 52 H ABG pO2 395 H* 129 H ABG HCO3 10.0 L 13.6 L ABG Total CO2 12.9 L 15.2 L ABG O2 Saturation 99 H 97 ABG Base Excess -28.4 L -17.1 L Jomar Test POSITIVE POSITIVE Respiration Rate 20 20 O2 Delivery Device VENTILATOR VENTILATOR Vent Mode SIMV SIMV FiO2 100.00 60.00 Tidal Volume 550 550 PEEP 5 5 Pressure Support Vent 10 10 Sodium Potassium Chloride Carbon Dioxide Anion Gap BUN Creatinine Estimated GFR (MDRD) Glucose Calcium Magnesium Total Bilirubin AST ALT Alkaline Phosphatase Total Protein Albumin Globulin Albumin/Globulin Ratio Lipase Urine Color Urine Clarity Urine pH Ur Specific [place] Urine Protein Urine Glucose (UA) Urine Ketones Urine Occult Blood Urine Nitrite Urine Bilirubin Urine Urobilinogen Ur Leukocyte Esterase Ur Microscopic Review Urine Culture Comments Nasal Adenovirus (PCR) NOT DETECTED Nasal B. parapertussis DNA (PCR) NOT DETECTED Nasal Coronavir 229E PCR NOT DETECTED Nasal Coronavir HKU1 PCR NOT DETECTED Nasal Coronavir NL63 PCR NOT DETECTED Nasal Coronavir OC43 PCR NOT DETECTED Nasal Enterovir/Rhinovir PCR DETECTED A Nasal Influenza B PCR NOT DETECTED Nasal Influenza A PCR NOT DETECTED Nasal Parainfluen 1 PCR NOT DETECTED Nasal Parainfluen 2 PCR NOT DETECTED Nasal Parainfluen 3 PCR NOT DETECTED Nasal Parainfluen 4 PCR NOT DETECTED Nasal RSV (PCR) NOT DETECTED Nasal B.pertussis DNA PCR NOT DETECTED Nasal C.pneumoniae (PCR) NOT DETECTED Giovanni Human Metapneumo PCR NOT DETECTED Nasal M.pneumoniae (PCR) NOT DETECTED Nasal SARS-CoV-2 (PCR) NOT DETECTED Urine Opiates Screen Ur Oxycodone Screen Urine Methadone Screen Ur Propoxyphene Screen Ur Barbiturates Screen Ur Tricyclics Screen Ur Phencyclidine Scrn Ur Amphetamine Screen U Methamphetamines Scrn U Benzodiazepines Scrn Urine Cocaine Screen U Cannabinoids Screen - Rads (name of study) chest xray Radiology: Prelim report reviewed (ETT present, 3 cm above maynor. Some bilateral consolidatioons.), EMP read contemporaneously post NGT Radiology: Prelim report reviewed (NGT at distal esophagus. ETT still in position, slightly higher than prior. Worsening bilateral consolidations.) Procedures - Intubation Provider: Emergency physician Medications: Other (none) Blade: Glidescope Tube: Size-enter number (7.5), Cuffed Route: Oral Confirmation: Direct visualization, Bilateral breath sounds, No abdominal breath sound, End tidal CO2, Chest xray Complications: No compications. No: Desaturated - Central Line Central Line Preparation: Unable to obtain consent Central line location: Right Femoral Central line type: Triple lumen Central line aftercare: Chlorhexidine disc placed, Secured, Placement confirmed, No complications, Bundle checklist complete, Pt tolerated well, Other (assistance from Eran ELKNIS in the ER.) PD MEDICAL DECISION MAKING - ED course Complexity details: considered differential (Presumed respiratory arrest from polysubstance and opioids. Return of spontaneous circulation with prolonged prehospital ACLS. Unresponsive now but has stable heart rhythm. Blood pressure is hypotensive on pressors. However this condition remained stable over 2 hours 2-1/2 hours now. ), d/w patient ED course: Search for higher level ICU led to prolonged ER stay and treatment. The patient arrived with prolonged prehospital ACLS with some return of circulation and pulses intermittently and then agonal rhythm and asystole. No V. fib is recorded. The patient responded to epinephrine and in the ER arrived with pulses palpable on pulse check when CPR stopped. Dopamine and then epinephrine drips were started. Other medications were given including repeat epi boluses and bicarbonate. Presumption of hyperkalemia due to prolonged downtime and also gave calcium. On initial arrival after transferring to the bed and establishing pulse check, his lung sounds did sound diminished bilaterally and concerned that the end- tidal CO2 was not picking up well. His ET tube may have dislodged on transferring to [facility]. We therefore promptly remove the ET tube and [id number] respirations and reintubated with glide scope with good position. The patient did have a slowing of the heart rate again to agonal rhythm with CPR commenced for a minute or 2 repeat epi brought his rate back up. From there the IV infusion seem to sustain the heart rate. Limited bedside ultrasound of the heart showed general decreased contractility without any obvious effusion. NG tube and Dominguez's were placed. He came in with a good 20-gauge peripheral IV and an IO line as well. Hospitalist at [facility] felt patient too complicated for our ICU. Initially we talked with hospitalist at [facility] who would accept the transfer if the patient had cooling, central line, art line, improved blood pressure and a bit longer of time to show stability of blood pressure and rhythm. These were all accomplished and the patient remained with a blood pressure low at 80s to 90 systolic but stable and had not had any change in his heart rhythm. It therefore seemed he was stable for transfer. However during that time [facility] ICU took another patient and were now full. We subsequently called all other facilities in [place] and [place], none of which had beds available except for maybe [facility]. They would try to rearrange patient's and open an ICU bed. They subsequently called back an hour or more later with bed availability and I talked to Dr. Rivas the oil well service operator helper who accepted transfer. During this time the weather that had initially been good for flying now had fog patches so we had to change to ground transportation. The patient remained without any spontaneous movement or breathing. Blood pressure remained stable at 80-100 systolic and actually went over 100 systolic before departure. He was on epinephrine and Levophed drips. Ventilator settings remained stable with l owering of the oxygenation requirement. - Critical Care Time(min): 90 Time Includes: Direct patient care, Reassess patient, Document care, Coordinate care, Medical consult Data interpretation: Labs, Pulse ox, ABG, CXR, See progress note Procedures included in critical care time: Gastric intubation, Ventilator mgmt Procedures excluded from critical care time: Central IV, Arterial cannulation, CPR, See progress note Departure - Departure Disposition: 02 Transfer Acute Care Hosp Clinical Impression: Heroin addiction, Polysubstance abuse, Respiratory arrest, Signs of return of spontaneous circulation, PEA (Pulseless electrical activity) Condition: Stable Record reviewed to determine appropriate education?: Yes Discharge Date/Time: 02/28/20 01:29
[2020-02-27] MEDS ORDERED: DOPamine 800 MG/500 ML 800 MG/500 ML BAG IV STA (20:03)
[2020-02-27] MEDS ORDERED: SODIUM BICARBONATE ABBOJECT 50 MEQ/50 ML SYRINGE IVP STA (20:03)
[2020-02-27] MEDS ORDERED: NALOXONE 0.4 MG/ML VIAL ONE (20:04)
[2020-02-27] MEDS ORDERED: CALCIUM CHLORIDE ABBOJECT 1000MG/10 ML SYRINGE IVP STA (20:05)
[2020-02-27 20:11] LABS: BASOPHILS # (AUTO) 0.1 10^3/uL (0.0-0.1); BASOPHILS % (AUTO) 0.6 %; EOSINOPHILS # (AUTO) 0.4 10^3/uL (0.0-0.7); EOSINOPHILS % (AUTO) 3.4 %; HCT - HEMATOCRIT 42.6 % (42.0-52.0); HGB - HEMOGLOBIN 12.4 g/dL (14.0-18.0); LYMPHOCYTES % (AUTO) 55.5 %; MEAN CORPUSCULAR HEMOGLOBIN 29.9 pg (27.0-31.0); MEAN CORPUSCULAR HGB CONC 29.1 g/dL (32.0-36.0); MEAN CORPUSCULAR VOLUME 102.7 fL (80.0-94.0); MEAN PLATELET VOLUME 10.6 fL (7.4-11.4); MONOCYTES # (AUTO) 0.4 10^3/uL (0.0-1.0); NEUTROPHILS # (AUTO) 3.4 10^3/uL (1.5-6.6); NEUTROPHILS % (AUTO) 31.4 %; NRBC ABSOLUTE COUNT (AUTO) 0.03 x10^3/uL; NUCLEATED RED BLOOD CELLS AUTO 0.3 /100WBC; PLT - PLATELET COUNT 187 10^3/uL (130-450); RED BLOOD COUNT 4.15 10^6/uL (4.70-6.10); RED CELL DISTRIBUTION WIDTH 13.2 % (12.0-15.0); WHITE BLOOD COUNT 10.8 x10^3/uL (4.8-10.8)
[2020-02-27 20:18] LABS: MUDS CUTOFF CONCENTRATIONS CUTOFF CONC BELOW:
--- NOTE | 2020-02-27 20:19 | XRAY Report ---
PROCEDURE: Chest for Line Placement INDICATIONS: Tube replacement TECHNIQUE: One view of the chest was acquired. COMPARISON: 04/29/2015 FINDINGS: Surgical changes and devices: Endotracheal tube terminates approximately 3 cm from maynor. EKG leads project over the chest. Lungs and pleura: No pleural effusions or pneumothorax. Lungs are clear. Mediastinum: Mediastinal contours appear normal. Heart size is normal. Bones and chest wall: No suspicious bony lesions. Overlying soft tissues appear unremarkable. IMPRESSION: Adequate position of endotracheal tube. Reviewed by: Blake Mcallister MD on 02/27/2020 8:18 PM PST Approved by: Blake Mcallister MD on 02/27/2020 8:18 PM PST Station ID: [id number]
[2020-02-27 20:21] LABS: BILIRUBIN,URINE NEGATIVE (NEGATIVE); GLUCOSE, URINE (UA) NEGATIVE (NEGATIVE); KETONES,URINE (UA) NEGATIVE (NEGATIVE); LEUKOCYTE ESTERASE, URINE NEGATIVE (NEGATIVE); NITRITE,URINE NEGATIVE (NEGATIVE); OCCULT BLOOD,URINE NEGATIVE (NEGATIVE); PH,URINE 5.5 PH (5.0-7.5); PROTEIN,URINE TRACE mg/dL (NEGATIVE); UROBILINOGEN,URINE 0.2 (NORMAL) E.U./dL (NORMAL)
[2020-02-27 20:24] LABS: SLIDE REVIEW? Indicated
[2020-02-27 20:30] LABS: ALBUMIN/GLOBULIN RATIO 1.2 (1.0-2.2); BILIRUBIN,TOTAL 0.5 mg/dL (0.2-1.0); CALCIUM 8.8 mg/dL (8.5-10.3); CREATININE 1.1 mg/dL (0.6-1.2); POTASSIUM 4.9 mmol/L (3.5-5.0); TOTAL PROTEIN 5.6 g/dL (6.7-8.2)
[2020-02-27 20:32] LABS: ABG BASE EXCESS -28.4 mmol/L (-2.0-3.0); ABG OXYGEN SATURATION 99 % (94-98); ABG TCO2 12.9 MMOL/L (21.0-29.0); ALLEN TEST POSITIVE
[2020-02-27 20:33] LABS: ABG MODE OF VENTILATION SIMV; ABG RESPIRATORY RATE 20 b/min
[2020-02-27 20:33] LABS: AMPHETAMINE SCREEN,URINE POSITIVE (NEGATIVE); BENZODIAZEPINES SCREEN, URINE NEGATIVE (NEGATIVE); COCAINE SCREEN URINE NEGATIVE (NEGATIVE); METHADONE SCREEN, URINE POSITIVE (NEGATIVE); METHAMPHETAMINES SCREEN, URINE POSITIVE (NEGATIVE); OPIATE SCREEN, URINE POSITIVE (NEGATIVE); THC CANNABINOID SCREEN, URINE POSITIVE (NEGATIVE); TRICYCLIC ANTIDEPRESSANT,URINE NEGATIVE (NEGATIVE)
[2020-02-27 20:34] LABS: BARBITURATE SCREEN,UR NEGATIVE (NEGATIVE); OXYCODONE SCREEN, URINE NEGATIVE (NEGATIVE); PROPOXYPHENE SCREEN, URINE NEGATIVE (NEGATIVE)
[2020-02-27 20:35] LABS: CLARITY,URINE CLEAR (CLEAR)
[2020-02-27 20:35] LABS: ABG PCO2 94 mmHg (34-45); ABG PH 6.65 (7.35-7.45)
[2020-02-27 20:36] LABS: ABG PO2 395 mmHg (80-100)
[2020-02-27 20:47] LABS: PLATELET ESTIMATE, MANUAL NORMAL (130-450,000) (NORMAL); PLATELET MORPHOLOGY NORMAL APPEARANCE (NORMAL)
[2020-02-27 21:05] LABS: B. PARAPERTUSSIS- RESP PCR PAN NOT DETECTED; B. PERTUSSIS- RESP PCR PANEL NOT DETECTED; C. PNEUMONIAE- RESP PCR PANEL NOT DETECTED; CORONAVIRUS 229E-RESP PCR NOT DETECTED; CORONAVIRUS HKU1-RESP PCR NOT DETECTED; CORONAVIRUS NL63-RESP PCR NOT DETECTED; CORONAVIRUS OC43-RESP PCR NOT DETECTED; HUMAN METAPNEUMOVIRUS NOT DETECTED; INFLUENZA A- RESP PCR PANEL NOT DETECTED; INFLUENZA B - RESP PCR PANEL NOT DETECTED; M. PNEUMONIAE- RESP PCR PANEL NOT DETECTED; PARAINFLUENZA VIRUS 1 NOT DETECTED; PARAINFLUENZA VIRUS 2 NOT DETECTED; PARAINFLUENZA VIRUS 3 NOT DETECTED; PARAINFLUENZA VIRUS 4 NOT DETECTED; RHINOVIRUS/ENTEROVIRUS DETECTED; RSV- RESP PCR PANEL NOT DETECTED; SARS-CoV-2 -RESP PCR PANEL NOT DETECTED
[2020-02-27] MEDS ORDERED: SODIUM CHLORIDE 0.9% 1,000 ML IV STA ×2 (21:18→21:19)
--- NOTE | 2020-02-27 21:52 | ED Physician Documentation ---
Procedures - General procedure General procedure: Arterial line procedure note: A time out was performed. No consent was obtained due to patient condition. After an Jomar test was performed to ensure adequate perfusion, the left wrist was prepped using chlorhexidine scrub and draped in sterile fashion using a three quarter sheet drape and sterile towels. The radial pulse was identified and the wrist was positioned in the usual fashion. Using the Arrow Radial Arterial Line Kit, a needle was inserted into the radial artery. Arterial blood was seen to pulsate in the flash chamber. The internal guidewire was advanced easily into the radial artery. The catheter was then advanced over the wire and the needle and wire were withdrawn. The catheter was sutured in place. A sterile opsite was placed over the catheter at the insertion site. The patient tolerated the procedure without any hemodynamic compromise. At the time of procedure completion, the catheter was connected to the residential monitor and calibrated. Appropriate waveform and blood pressure tracing was observed. Estimated blood loss is 5ml - Central Line Central Line Preparation: Unable to obtain consent
[2020-02-27] MEDS ORDERED: SODIUM BICARBONATE ABBOJECT 4.2% 5 MEQ/10 ML SYRINGE IVP STA (22:21)
[2020-02-27 22:35] LABS: ABG BASE EXCESS -17.1 mmol/L (-2.0-3.0); ABG HCO3 13.6 mmol/L (22.0-26.0); ABG OXYGEN SATURATION 97 % (94-98); ABG PCO2 52 mmHg (34-45); ABG PO2 129 mmHg (80-100); ABG TCO2 15.2 MMOL/L (21.0-29.0); ALLEN TEST POSITIVE
[2020-02-27 22:36] LABS: ABG MODE OF VENTILATION SIMV; ABG RESPIRATORY RATE 20 b/min
[2020-02-27 22:38] LABS: ABG PH 7.04 (7.35-7.45)
[2020-02-27] MEDS ORDERED: EPINEPHrine 4 MG in DEXTROSE 5% 246 ML IV STA (23:28)
[2020-02-27] MEDS ORDERED: SODIUM CHLORIDE 0.9% 50 ML IV ONE (23:43)
[2020-02-28 00:25] VITALS: BP 95/67
[2020-02-28] MEDS ORDERED: NALOXONE 0.4 MG/ML VIAL IVP STA (01:10)
[2020-02-28] MEDS ORDERED: SODIUM BICARBONATE ABBOJECT 50 MEQ/50 ML SYRINGE IVP STA (01:10)
[2020-02-28] MEDS ORDERED: EPINEPHrine ABBOJECT 1 MG/10 ML SYRINGE IVP STA ×2 (01:10)
--- NOTE | 2020-02-28 08:05 | XRAY Report ---
PROCEDURE: Chest for Line Placement INDICATIONS: follow up tube placement TECHNIQUE: One view of the chest was acquired. COMPARISON: 02/27/20, 04/29/15 FINDINGS: Surgical changes and devices: There is a new nasogastric tube extending into the distal esophagus. En dotracheal tube is redemonstrated with the tip approximately 6 cm from the maynor. There are overlyin g pacer pads and leads limiting evaluation. Lungs and pleura: No definite pleural effusions or pneumothorax on this supine study. There is persi stent pulmonary edema with bilateral areas of confluence in the right suprahilar and left infrahilar regions suggestive of consolidation. Mediastinum: Mediastinal contours appear normal. Heart size is normal. Bones and chest wall: No displaced fractures identified. No suspicious bony lesions. Overlying soft tissues appear unremarkable. IMPRESSION: 1. Nasogastric tube extends into the distal esophagus. Recommend further advancement into the stomach . 2. Persistent pulmonary edema with perihilar airspace opacities which may represent confluent edema o r consolidation. Concordant with preliminary [facility] report. Reviewed by: Philip Srivastava MD on 02/28/2020 8:04 AM PST Approved by: Philip Srivastava MD on 02/28/2020 8:04 AM PST Station ID: [id number]
--- OUTSIDE RECORDS SUMMARY | 2020-03-05 00:54 | EXTERNAL MEDICAL SUMMARY RPT | Continuity of Care Document ---
:1970 Demographics Phone Unavailable Preferred Language Unknown Marital Status Unknown Denominational Affiliation Unknown Race Unknown Ethnic Group Unknown Author Organization [place] Address [address] [phone] Phone Care Team Providers Name Role Phone Fly Unavailable Unavailable [place] Unavailable Unavailable [place] Unavailable Unavailable Problems date description facility 2012-09-03 01:23 SEPTICEMIA NOS [facility] 2012-09-03 01:23 UNSPECIFIED VIRAL HEPATITIS C [facility] WITHOUT HEPATIC COMA 2012-09-03 01:[address] [facility] 2012-09-03 01:23 ASTHMA, UNSPECIFIED [facility] 2012-09-03 01:23 ACUTE PROSTATITIS [facility] 2012-09-03 01:23 ABSCESS OF PROSTATE [facility] 2012-09-03 01:23 URINARY FREQUENCY [facility] 2012-09-03 01:[address] [facility] 2012-09-03 01:23 SEPSIS [facility] 2012-09-03 01:23 ACQRD ABSENCE OF OTH ORGAN [facility] 2013-04-09 08:[address] [facility] 2013-04-09 08:25 CELLULITIS OF ARM [facility] 2013-12-24 10:[address] [facility] 2013-12-24 10:07 ASTHMA, UNSPECIFIED [facility] 2013-12-24 10:07 SHORTNESS OF BREATH [facility] 2014-03-11 09:[address] [facility] 2014-03-11 09:52 ASTHMA, UNSPECIFIED, W (ACUTE) [facility] EXACERBATION 2014-03-11 09:52 OTHER DENTAL CARIES [facility] 2014-03-11 09:52 SHORTNESS OF BREATH [facility] 2014-04-16 08:32 ASTHMA, UNSPECIFIED [facility] 2014-04-16 08:32 AC APICAL PERIODONTITIS [facility] 2014-04-16 08:32 PEPTIC ULCER NOS [facility] 2014-04-16 08:32 COUGH [facility] 2014-05-31 15:34 TOBACCO USE DISORDER [facility] 2014-05-31 15:34 ASTHMA, UNSPECIFIED [facility] 2014-05-31 15:34 RESPIRATORY ABNORM NEC [facility] 2014-07-08 13:57 TOBACCO USE DISORDER [facility] 2014-07-08 13:57 ASTHMA, UNSPECIFIED [facility] 2014-07-08 13:[address] [facility] 2014-07-08 13:57 AC APICAL PERIODONTITIS [facility] 2014-07-08 13:57 RESPIRATORY ABNORM NEC [facility] 2014-10-09 07:16 OPIOID DEPENDENCE-UNSPEC [facility] 2014-10-09 07:[address] [facility] 2014-10-09 07:16 ASTHMA, UNSPECIFIED, W (ACUTE) [facility] EXACERBATION 2014-10-09 07:[address] [facility] 2014-12-04 09:40 NICOTINE DEPENDENCE, [facility] UNSPECIFIED, UNCOMPLICATED 2014-12-04 09:40 UNSPECIFIED ASTHMA, [facility] UNCOMPLICATED 2014-12-04 09:40 LOW BACK PAIN [facility] 2014-12-04 09:40 PAIN IN RIGHT HAND [facility] 2014-12-04 09:40 HEMATURIA, UNSPECIFIED [facility] 2014-12-04 09:40 NONDISP FX OF NECK OF SECOND [facility] BONE, RIGHT HAND, INIT 2014-12-31 14:27 NICOTINE DEPENDENCE, [facility] UNSPECIFIED, UNCOMPLICATED 2014-12-31 14:27 MILD INTERMITTENT ASTHMA, [facility] UNCOMPLICATED 2014-12-31 14:27 SHORTNESS OF BREATH [facility] 2015-02-17 14:27 NICOTINE DEPENDENCE, [facility] UNSPECIFIED, UNCOMPLICATED 2015-02-17 14:27 MODERATE PERSISTENT ASTHMA WITH [facility] (ACUTE) EXACERBATION 2015-02-17 14:27 SHORTNESS OF BREATH [facility] 2015-03-20 14:30 NICOTINE DEPENDENCE, [facility] UNSPECIFIED, UNCOMPLICATED 2015-03-20 14:30 MODERATE PERSISTENT ASTHMA WITH [facility] (ACUTE) EXACERBATION 2015-03-20 14:30 DYSPNEA, UNSPECIFIED [facility] 2015-04-29 12:02 NICOTINE DEPENDENCE, [facility] UNSPECIFIED, UNCOMPLICATED 2015-04-29 12:02 UNSPECIFIED ASTHMA, [facility] UNCOMPLICATED 2015-04-29 12:02 PLEURODYNIA [facility] 2015-04-29 12:02 CONTUSION OF RIGHT FRONT WALL OF [facility] THORAX, INITIAL ENCOUNTER 2015-04-29 12:02 OTHER FALL FROM ONE LEVEL TO [facility] ANOTHER, INITIAL ENCOUNTER 2015-09-04 13:28 NICOTINE DEPENDENCE, [facility] UNSPECIFIED, UNCOMPLICATED 2015-09-04 13:28 SWIMMER'S EAR, RIGHT EAR [facility] 2015-09-04 13:28 UNSPECIFIED ASTHMA, [facility] UNCOMPLICATED 2015-09-04 13:28 PUNCTURE WOUND WITHOUT FOREIGN [facility] BODY, RIGHT FOOT, INIT ENCNTR 2015-09-04 13:28 UNSPECIFIED INJURY OF RIGHT [facility] FOOT, INITIAL ENCOUNTER 2015-09-04 13:28 FALL SAME LEV FR SLIP/TRIP W [facility] STRK AGNST OTH SHARP OBJ, INIT 2015-09-04 13:28 CONTACT WITH KNIFE, INITIAL [facility] ENCOUNTER 2015-09-04 13:28 ENCOUNTER FOR IMMUNIZATION [facility] 2015-09-07 14:57 NICOTINE DEPENDENCE, 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, UNCOMPLICATED 2015-09-07 14:57 UNSPECIFIED ASTHMA, [facility] UNCOMPLICATED 2015-09-07 14:57 CELLULITIS OF RIGHT LOWER LIMB [facility] 2015-09-07 14:57 LACERATION WITHOUT FOREIGN BODY, [facility] RIGHT FOOT, INIT ENCNTR 2015-09-07 14:57 PUNCTURE WOUND WITHOUT FOREIGN [facility] BODY, RIGHT FOOT, INIT ENCNTR 2015-09-07 14:57 FALL SAME LEV FROM SLIP/TRIP W/O [facility] STRIKE AGAINST OBJECT, INIT 2015-09-07 14:57 CONTACT WITH KNIFE, INITIAL [facility] ENCOUNTER 2015-09-07 14:[address] [facility] 2015-11-20 08:11 NICOTINE DEPENDENCE, [facility] UNSPECIFIED, UNCOMPLICATED 2015-11-20 08:11 UNSPECIFIED ASTHMA, [facility] UNCOMPLICATED 2015-11-20 08:11 DYSPNEA, UNSPECIFIED [facility] 2016-07-21 17:27 MILD INTERMITTENT ASTHMA WITH [facility] (ACUTE) EXACERBATION 2016-07-21 17:27 WHEEZING [facility] 2016-07-21 17:27 PERSONAL HISTORY OF NICOTINE [facility] DEPENDENCE 2016-08-14 12:47 UNSPECIFIED ASTHMA, [facility] UNCOMPLICATED 2016-08-14 12:47 WHEEZING [facility] 2016-08-14 12:47 PERSONAL HISTORY OF NICOTINE [facility] DEPENDENCE 2016-08-30 21:47 UNSPECIFIED ASTHMA WITH (ACUTE) [facility] EXACERBATION 2016-08-30 21:47 SHORTNESS OF BREATH [facility] 2016-08-30 21:47 PERSONAL HISTORY OF NICOTINE [facility] DEPENDENCE 2016-10-18 17:14 UNSPECIFIED ASTHMA, [facility] UNCOMPLICATED 2016-10-18 17:14 DYSPNEA, UNSPECIFIED [facility] 2016-10-18 17:14 PERSONAL HISTORY OF NICOTINE [facility] DEPENDENCE 2016-11-02 04:35 UNSPECIFIED ASTHMA, [facility] UNCOMPLICATED 2016-11-02 04:35 SHORTNESS OF BREATH [facility] 2016-11-02 04:35 PERSONAL HISTORY OF NICOTINE [facility] DEPENDENCE 2016-11-18 06:31 UNSPECIFIED ASTHMA, [facility] UNCOMPLICATED 2016-11-18 06:31 SHORTNESS OF BREATH [facility] 2017-01-10 16:33 UNSPECIFIED ASTHMA, [facility] UNCOMPLICATED 2017-01-10 16:33 LOW BACK PAIN [facility] 2017-01-10 16:33 DYSPNEA, UNSPECIFIED [facility] 2017-06-15 06:33 NICOTINE DEPENDENCE, [facility] UNSPECIFIED, UNCOMPLICATED 2017-06-15 06:33 ACUTE SUPPR OTITIS MEDIA W/O [facility] SPON RUPT EAR DRUM, BILATERAL 2017-06-15 06:33 MODERATE PERSISTENT ASTHMA WITH [facility] (ACUTE) EXACERBATION 2017-06-15 06:33 DYSPNEA, UNSPECIFIED [facility] 2017-10-30 07:10 NICOTINE DEPENDENCE, [facility] UNSPECIFIED, UNCOMPLICATED 2017-10-30 07:10 UNSPECIFIED ASTHMA, [facility] UNCOMPLICATED 2017-10-30 07:10 PERIAPICAL ABSCESS WITHOUT SINUS [facility] 2017-10-30 07:10 DYSPNEA, UNSPECIFIED [facility] 2017-10-30 07:10 UNDERDOSING OF ANTIASTHMATICS, [facility] INITIAL ENCOUNTER 2017-10-30 07:10 PATIENT'S INTENTL UNDRDOSE OF [facility] MEDS REGIMEN FOR OTH REASON 2017-11-10 18:01 ENCOUNTER FOR OTHER SPECIFIED [facility] SPECIAL EXAMINATIONS 2019-12-27 10:31 WHEEZING [facility] 2019-12-27 10:31 NICOTINE DEPENDENCE, 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, INITIAL ENCOUNT 2020-02-27 19:28 CONTACT W AND EXPOSURE TO OTH [facility] VIRAL COMMUNICABLE D 2020-02-28 02:41 Post arrest, OD [employer] Allergies date description facility BRILLIANT SCARLET [facility] ACETAMINOPHEN [facility] DULOXETINE [facility] GEMFIBROZIL [facility] PRAVASTATIN [facility] SPIRONOLACTONE [facility] SULFAMETHOXAZOLE W/TRIMETHOPRIM [facility] (CO-TRIMOXAZOLE) [facility] NSA[facility] PENICILLINS [facility] STATINS [facility] OXYCODONE [facility] PENICILLINS [facility] NO KNOWN ALLERGIES [facility] OPIOIDS - MORPHINE ANALOGUES [facility] PENICILLINS [facility] SULFA (SULFONAMIDE ANTIBIOTICS) [facility] [id number] REDUCTASE INHIBITORS [facility]ANIDES [facility] NO KNOWN ALLERGIES [facility] NITROUS [facility]XIDE [facility] M[facility]PHINE [facility] CODEINE [facility] OXYCODONE [facility] BUPRENORPHINE [facility] CARISOPRODOL [facility] TROPICAMIDE [facility] ACETAZOLAMIDE [facility] HYDROCHLOROTHIAZIDE [facility] CIPROFLOXACIN HCL [facility] DILTIAZEM HCL [facility] GUAIFENESIN [facility] ERYTHROMYCIN [facility] No Known Drug Allergies [facility] TROPICAMIDE [facility] CIPROFLOXACIN [facility]CL [facility] PENICILLINS [facility] NO KNOWN ALLERGIES [facility] TROPICAMIDE [facility] CIPROFLOXACIN HCL [facility] Results Social History date description facility [id number]
== END 2020-02-28 01:29 | disposition short-term general hospital (02) ==
LOC: EDUNIT# → ED 19:28
DX: F11.229 Opioid dependence with intoxication, unspecified (principal); T40.1X4A Poisoning by heroin, undetermined, initial encounter; F15.229 Other stimulant dependence with intoxication, unspecified; I46.9 Cardiac arrest, cause unspecified; F19.10 Other psychoactive substance abuse, uncomplicated; F17.200 Nicotine dependence, unspecified, uncomplicated; Z20.828 Contact with and (suspected) exposure to other viral communicable diseases
CPT/HCPCS: 0202U; 31500; 36556; 36600; 43753; 51702; 71045; 80053; 80306; 81003; 82803; 83690; 83735; 85025; 92950; 93005; 96365; 96366; 96368; 96375; 96376; 99285; 99291; 99292; G0390; J7040; 81001; 87086; 94770

== ENCOUNTER 2020-02-28 01:17 | Outpatient (CLI) | payer MEDICAID ==
--- OUTSIDE RECORDS SUMMARY | 2020-03-05 01:17 | EXTERNAL MEDICAL SUMMARY RPT | Continuity of Care Document ---
:1970 Demographics Phone Unavailable Preferred Language Unknown Marital Status Unknown Anabaptism Affiliation Unknown Race Unknown Ethnic Group Unknown Author Organization May Address [address] [id number] Phone Care Team Providers Name Role Phone Spangler Unavailable Unavailable Fly Unavailable Unavailable Shelby Unavailable Unavailable Problems date description facility 2012-09-03 01:23 SEPTICEMIA NOS [facility] 2012-09-03 01:23 UNSPECIFIED VIRAL HEPATITIS [facility] WITHOUT HEPATIC COMA 2012-09-03 01:23 TOBACCO USE DISORDER [facility] 2012-09-03 01:23 ASTHMA, UNSPECIFIED [facility] 2012-09-03 01:23 ACUTE PROSTATITIS [facility] 2012-09-03 01:23 ABSCESS OF PROSTATE [facility] 2012-09-03 01:23 URINARY FREQUENCY [facility] 2012-09-03 01:23 URGENCY OF URINATION [facility] 2012-09-03 01:23 SEPSIS [facility] 2012-09-03 01:23 ACQRD ABSENCE OF OTH ORGAN [facility] 2013-04-09 08:25 TOBACCO USE DISORDER [facility] 2013-04-09 08:25 CELLULITIS OF ARM [facility] 2013-12-24 10:07 TOBACCO USE DISORDER [facility] 2013-12-24 10:07 ASTHMA, UNSPECIFIED [facility] 2013-12-24 10:07 SHORTNESS OF BREATH [facility] 2014-03-11 09:52 TOBACCO USE DISORDER [facility] 2014-03-11 09:52 ASTHMA, UNSPECIFIED, W (ACUTE) [facility] EXACERBATION 2014-03-11 09:52 OTHER DENTAL CARIES [facility] 2014-03-11 09:52 SHORTNESS OF BREATH [facility] 2014-04-16 08:32 ASTHMA, UNSPECIFIED [facility] 2014-04-16 08:32 AC APICAL PERIODONTITIS [facility] 2014-04-16 08:32 PEPTIC ULCER NOS [facility] 2014-04-16 08:32 COUGH [facility] 2014-05-31 15:34 TOBACCO USE DISORDER [facility] 2014-05-31 15:34 ASTHMA, UNSPECIFIED [facility] 2014-05-31 15:34 RESPIRATORY ABNORM NEC [facility] 2014-07-08 13:57 TOBACCO USE DISORDER [facility] 2014-07-08 13:57 ASTHMA, UNSPECIFIED [facility] 2014-07-08 13:57 UNSPEC DENTAL CARIES [facility] 2014-07-08 13:57 AC APICAL PERIODONTITIS [facility] 2014-07-08 13:57 RESPIRATORY ABNORM NEC [facility] 2014-10-09 07:16 OPIOID DEPENDENCE-UNSPEC [facility] 2014-10-09 07:16 TOBACCO USE DISORDER [facility] 2014-10-09 07:16 ASTHMA, UNSPECIFIED, W (ACUTE) [facility] EXACERBATION 2014-10-09 07:16 RESPIRATORY ABNORM [facility] 2014-12-04 09:40 NICOTINE DEPENDENCE, [facility] UNSPECIFIED, UNCOMPLICATED 2014-12-04 09:40 UNSPECIFIED ASTHMA, [facility] UNCOMPLICATED 2014-12-04 09:40 LOW BACK PAIN [facility] 2014-12-04 09:40 PAIN IN RIGHT HAND [facility] 2014-12-04 09:40 HEMATURIA, UNSPECIFIED [facility] 2014-12-04 09:40 NONDISP FX OF NECK OF SECOND [facility] BONE, RIGHT HAND, INIT 2014-12-31 14:27 NICOTINE DEPENDENCE, [facility] UNSPECIFIED, UNCOMPLICATED 2014-12-31 14:27 MILD INTERMITTENT ASTHMA, [facility] UNCOMPLICATED 2014-12-31 14:27 SHORTNESS OF BREATH [facility] 2015-02-17 14:27 NICOTINE DEPENDENCE, [facility] UNSPECIFIED, UNCOMPLICATED 2015-02-17 14:27 MODERATE PERSISTENT ASTHMA WITH [facility] (ACUTE) EXACERBATION 2015-02-17 14:27 SHORTNESS OF BREATH [facility] 2015-03-20 14:30 NICOTINE DEPENDENCE, [facility] UNSPECIFIED, UNCOMPLICATED 2015-03-20 14:30 MODERATE PERSISTENT ASTHMA WITH [facility] (ACUTE) EXACERBATION 2015-03-20 14:30 DYSPNEA, UNSPECIFIED [facility] 2015-04-29 12:02 NICOTINE DEPENDENCE, [facility] UNSPECIFIED, UNCOMPLICATED 2015-04-29 12:02 UNSPECIFIED ASTHMA, [facility] UNCOMPLICATED 2015-04-29 12:02 PLEURODYNIA [facility] 2015-04-29 12:02 CONTUSION OF RIGHT FRONT WALL OF [facility] THORAX, INITIAL ENCOUNTER 2015-04-29 12:02 OTHER FALL FROM ONE LEVEL TO [facility] ANOTHER, INITIAL ENCOUNTER 2015-09-04 13:28 NICOTINE DEPENDENCE, [facility] UNSPECIFIED, UNCOMPLICATED 2015-09-04 13:28 SWIMMER'S EAR, RIGHT EAR [facility] 2015-09-04 13:28 UNSPECIFIED ASTHMA, [facility] UNCOMPLICATED 2015-09-04 13:28 PUNCTURE WOUND WITHOUT FOREIGN [facility] BODY, RIGHT FOOT, INIT ENCNTR 2015-09-04 13:28 UNSPECIFIED INJURY OF RIGHT [facility] FOOT, INITIAL ENCOUNTER 2015-09-04 13:28 FALL SAME LEV FR SLIP/TRIP W [facility] STRK AGNST OTH SHARP OBJ, INIT 2015-09-04 13:28 CONTACT WITH KNIFE, INITIAL [facility] ENCOUNTER 2015-09-04 13:28 ENCOUNTER FOR IMMUNIZATION [facility] 2015-09-07 14:57 NICOTINE DEPENDENCE, [facility] UNSPECIFIED, UNCOMPLICATED 2015-09-07 14:57 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, UNCOMPLICATED 2015-09-07 14:57 UNSPECIFIED ASTHMA, [facility] UNCOMPLICATED 2015-09-07 14:57 CELLULITIS OF RIGHT LOWER LIMB [facility] 2015-09-07 14:57 LACERATION WITHOUT FOREIGN BODY, [facility] RIGHT FOOT, INIT ENCNTR 2015-09-07 14:57 PUNCTURE WOUND WITHOUT FOREIGN [facility] BODY, RIGHT FOOT, INIT ENCNTR 2015-09-07 14:57 FALL SAME LEV FROM SLIP/TRIP W/O [facility] STRIKE AGAINST OBJECT, INIT 2015-09-07 14:57 CONTACT WITH KNIFE, INITIAL [facility] ENCOUNTER 2015-09-07 14:[address] [facility] 2015-11-20 08:11 NICOTINE DEPENDENCE, [facility] UNSPECIFIED, UNCOMPLICATED 2015-11-20 08:11 UNSPECIFIED ASTHMA, [facility] UNCOMPLICATED 2015-11-20 08:11 DYSPNEA, UNSPECIFIED [facility] 2016-07-21 17:27 MILD INTERMITTENT ASTHMA WITH [facility] (ACUTE) EXACERBATION 2016-07-21 17:27 WHEEZING [facility] 2016-07-21 17:27 PERSONAL HISTORY OF NICOTINE [facility] DEPENDENCE 2016-08-14 12:47 UNSPECIFIED ASTHMA, [facility] UNCOMPLICATED 2016-08-14 12:47 WHEEZING [facility] 2016-08-14 12:47 PERSONAL HISTORY OF NICOTINE [facility] DEPENDENCE 2016-08-30 21:47 UNSPECIFIED ASTHMA WITH (ACUTE) [facility] EXACERBATION 2016-08-30 21:47 SHORTNESS OF BREATH [facility] 2016-08-30 21:47 PERSONAL HISTORY OF NICOTINE [facility] DEPENDENCE 2016-10-18 17:14 UNSPECIFIED ASTHMA, [facility] UNCOMPLICATED 2016-10-18 17:14 DYSPNEA, UNSPECIFIED [facility] 2016-10-18 17:14 PERSONAL HISTORY OF NICOTINE [facility] DEPENDENCE 2016-11-02 04:35 UNSPECIFIED ASTHMA, [facility] UNCOMPLICATED 2016-11-02 04:35 SHORTNESS OF BREATH [facility] 2016-11-02 04:35 PERSONAL HISTORY OF NICOTINE [facility] DEPENDENCE 2016-11-18 06:31 UNSPECIFIED ASTHMA, [facility] UNCOMPLICATED 2016-11-18 06:31 SHORTNESS OF BREATH [facility] 2017-01-10 16:33 UNSPECIFIED ASTHMA, [facility] UNCOMPLICATED 2017-01-10 16:33 LOW BACK PAIN [facility] 2017-01-10 16:33 DYSPNEA, UNSPECIFIED [facility] 2017-06-15 06:33 NICOTINE DEPENDENCE, [facility] UNSPECIFIED, UNCOMPLICATED 2017-06-15 06:33 ACUTE SUPPR OTITIS MEDIA W/O [facility] SPON RUPT EAR DRUM, BILATERAL 2017-06-15 06:33 MODERATE PERSISTENT ASTHMA WITH [facility] (ACUTE) EXACERBATION 2017-06-15 06:33 DYSPNEA, UNSPECIFIED [facility] 2017-10-30 07:10 NICOTINE DEPENDENCE, [facility] UNSPECIFIED, UNCOMPLICATED 2017-10-30 07:10 UNSPECIFIED ASTHMA, [facility] UNCOMPLICATED 2017-10-30 07:10 PERIAPICAL ABSCESS WITHOUT SINUS [facility] 2017-10-30 07:10 DYSPNEA, UNSPECIFIED [facility] 2017-10-30 07:10 UNDERDOSING OF ANTIASTHMATICS, [facility] INITIAL ENCOUNTER 2017-10-30 07:10 PATIENT'S INTENTL UNDRDOSE OF [facility] MEDS REGIMEN FOR OTH REASON 2017-11-10 18:01 ENCOUNTER FOR OTHER SPECIFIED [facility] SPECIAL EXAMINATIONS 2019-12-27 10:31 WHEEZING [facility] 2019-12-27 10:31 NICOTINE DEPENDENCE, [facility] UNSPECIFIED, UNCOMPLICATED 2019-12-27 10:31 MILD INTERMITTENT ASTHMA WITH [facility] (ACUTE) EXACERBATION 2019-12-27 10:31 ENCOUNTER FOR ISSUE OF REPEAT [facility] PRESCRIPTION 2020-02-14 17:45 SHORTNESS OF BREATH [facility] 2020-02-14 17:45 PROC/TRTMT NOT CRD OUT D/T PT [facility] BEF SEEN BY [facility] CARE PROV 2020-02-14 17:45 PROC/TRTMT NOT CRD OUT D/T PT [facility] BEF SEEN BY [facility] 2020-02-27 19:28 OPIOID DEPENDENCE WITH [facility] [place] INTOXICATION, UNSPECIFIED 2020-02-27 19:28 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 ACETAMINOPHEN [facility] DULOXETINE [facility] GEMFIBROZIL [facility] PRAVASTATIN [facility] SPIRONOLACTONE [facility] SULFAMETHOXAZOLE W/TRIMETHOPRIM [facility] (CO-TRIMOXAZOLE) [facility] PENICILLINS [facility] STATINS [facility] OXYCODONE MYRISTATE [facility] PENICILLINS [facility] NO KNOWN ALLERGIES [facility] OPIOIDS - MORPHINE ANALOGUES [facility] PENICILLINS [facility] SULFA (SULFONAMIDE ANTIBIOTICS) [facility] [id number] REDUCTASE INHIBITORS W [facility]IDES [facility] NO [facility]NOWN ALLERGIES [facility] N[facility]INE [facility] CODEINE [facility] OXYCODONE [facility] BUPRENORPHINE [facility]CL [facility] CARISOPRODOL [facility] TROPICAMIDE [facility] ACETAZOLAMIDE [facility] HYDROCHLOROTHIAZIDE [facility] CIPROFLOXACIN HCL [facility] DILTIAZEM [facility]CL [facility] GUAIFENESIN [facility] ERYTHROMYCIN [facility] No Known Drug Allergies [facility]ILLINS [facility] TROPICAMIDE [facility] CIPROFLOXACIN HCL [facility]ILLINS [facility] NO KNOWN ALLERGIES [facility] TROPICAMIDE [facility] CIPROFLOXACIN HCL [facility] Results Social History date description facility [id number]
== END 2020-02-28 01:18 | disposition short-term general hospital (02) ==
LOC: EMS 01:17
PROVIDERS: ATTEND Surgery
DX: I46.9 Cardiac arrest, cause unspecified (principal)
CPT/HCPCS: A0425; A0426